=== PATIENT | female | born 1950 | race Caucasian/White ===

== ENCOUNTER 2023-06-18 14:19 | Outpatient (CLI) | payer MEDICARE, BC, SELFPAY ==
--- NOTE | 2023-06-18 14:30 | MR_ITS ---
[address] [address] Phone:?[phone] Fax:?[phone] Referring Physician Information: Viet Hurt M.D. [id number] [facility] [address] Phone:?[phone] Fax:?[phone] Patient:Melany Lombardo D.O.B:?1950 Sex:?Female Phone:?[phone] [facility] MRN:?[id number] Exam Date:?06/18/2023 EXAM: MRI of the LEFT SHOULDER WITHOUT CONTRAST CLINICAL HISTORY: Adhesive capsulitis of the left shoulder. Evaluate for rotator cuff tear. Personal history of melanoma. COMPARISONS: None available. TECHNICAL: MRI sequences of the left shoulder: Axials: PD, T2 Coronals: PD, STIR, T2 Sagittals: PD, T2 SEDATION: None CONTRAST: None FINDINGS: Bones: No fracture or suspicious bone marrow signal abnormality. Coracoacromial arch: Acromion: No os acromiale. Type I-II acromion. Acromiohumeral space: The bony distance is unremarkable. Acromioclavicular joint: No acute injury, arthropathy, or inferior hypertrophy. Coracoclavicular ligament: The coracoclavicular ligament is intact. Rotator cuff muscles/tendons: Supraspinatus: Mild tendinopathy. No muscular atrophy. Infraspinatus: The infraspinatus tendon and muscle are intact. Teres minor: The teres minor tendon and muscle are intact. Subscapularis: The subscapularis tendon and muscle are intact. Labrum and glenohumeral joint: No evidence of labral tear although evaluation is suboptimal because of nonarthrogram technique. Physiologic amount of joint fluid. Smooth chondral thinning over the humeral head is suspected although it must be noted that smooth chondral thinning is not well evaluated by MRI. No discrete chondral defect or subchondral cystic change/subchondral edema-like signal is seen. No convincing evidence of capsular edema or thickening although evaluation is suboptimal because of lack of joint distention. Proximal biceps tendon, long head and short heads: The long and short heads of the proximal biceps tendon are intact. Bursae: Subacromial/subdeltoid: No convincing subacromial bursal thickening/bursitis. Subcoracoid: No convincing subcoracoid bursal thickening/bursitis. IMPRESSION: 1. Mild supraspinatus tendinopathy. 2. Smooth chondral thinning over the humeral head is suspected although it must be noted that smooth chondral thinning is not well evaluated by MRI. No discrete chondral defect or subchondral cystic change/subchondral edema-like signal. 3. No MRI evidence of adhesive capsulitis although adhesive capsulitis is more of a clinical diagnosis; correlate with active and passive range of motion. 4. No discrete rotator cuff tendon tear, rotator cuff muscular atrophy, or biceps pathology of the left shoulder. RCB Electronically signed on 06/19/2023 8:37:00 AM by Raymundo Trevino M.D.
--- NOTE | 2023-06-18 15:30 | MR_ITS ---
[address] [address] Phone:?[phone] Fax:?[phone] Referring Physician Information: Viet Hurt M.D. [address] [facility] [address] Phone:?[phone] Fax:?[phone] Patient:Melany Lombardo D.O.B:?1950 Sex:?Female Phone:?[phone] [facility] MRN:?[id number] Exam Date:?06/18/2023 EXAM: MRI of the RIGHT SHOULDER WITHOUT CONTRAST CLINICAL HISTORY: Adhesive capsulitis of right shoulder. Evaluate for rotator cuff tear. Personal history of melanoma. COMPARISONS: None available. TECHNICAL: MRI sequences of the right shoulder: Axials: PD, T2 Coronals: PD, STIR, T2 Sagittals: PD, T2 SEDATION: None CONTRAST: None FINDINGS: Bones: No fracture or suspicious bone marrow signal abnormality. Coracoacromial arch: Acromion: No os acromiale. Type I-II acromion. Acromiohumeral space: The bony distance is unremarkable. Acromioclavicular joint: No acute injury, arthropathy, or inferior hypertrophy. Coracoclavicular ligament: The coracoclavicular ligament is intact. Rotator cuff muscles/tendons: Supraspinatus: The supraspinatus tendon and muscle are intact. Infraspinatus: The infraspinatus tendon and muscle are intact. Teres minor: The teres minor tendon and muscle are intact. Subscapularis: Mild tendinopathy. No muscular atrophy. Labrum and glenohumeral joint: No evidence of labral tear although evaluation is suboptimal because of nonarthrogram technique. Physiologic amount of joint fluid. Smooth chondral thinning over the humeral head is suspected although it must be noted that smooth chondral thinning is not well evaluated by MRI. No discrete chondral defect or subchondral cystic change/subchondral edema-like signal is seen. There is edema-like signal within and thickening of the inferior glenohumeral ligament/glenohumeral joint capsule. Proximal biceps tendon, long head and short heads: The long and short heads of the proximal biceps tendon are intact. Bursae: Subacromial/subdeltoid: No convincing subacromial bursal thickening/bursitis. Subcoracoid: No convincing subcoracoid bursal thickening/bursitis. IMPRESSION: 1. Findings highly associated with adhesive capsulitis. 2. Mild subscapularis tendinopathy. 3. Smooth chondral thinning over the humeral head is suspected although it must be noted that smooth chondral thinning is not well evaluated by MRI. No discrete chondral defect or subchondral cystic change/subchondral edema-like signal. 4. No rotator cuff tendon tear, rotator cuff muscular atrophy, biceps pathology of the right shoulder. RCB Electronically signed on 06/19/2023 8:37:00 AM by Raymundo Trevino M.D.
== END 2023-06-18 14:20 | disposition home or self-care (01) ==
LOC: MRI 14:20
PROVIDERS: PCP Family Medicine; Visit Provider Orthopaedic Surgery Sports Medicine
DX: M75.01 Adhesive capsulitis of right shoulder (principal); M75.101 Unspecified rotator cuff tear or rupture of right shoulder, not specified as traumatic; M75.02 Adhesive capsulitis of left shoulder; M75.102 Unspecified rotator cuff tear or rupture of left shoulder, not specified as traumatic
CPT/HCPCS: 73221

== ENCOUNTER 2024-03-06 11:32 | Emergency (ER) | payer MEDICARE, BC, SELFPAY ==
[2024-03-06 11:58] VITALS: BP 123/74; PULSE 78; RESP 18; TEMP 36.8; O2SAT 95
[2024-03-06 12:49] LABS: Strep A DNA Probe* NOT DETECTED (Not Detectd)
[2024-03-06 13:04] LABS: PCR FLU A Negative PCR FLU A (Negative); PCR FLU B Negative PCR FLU B (Negative); PCR RSV Negative PCR RSV (Negative); SARS PCR* POSITIVE SARS-CoV-2 (Negative)
--- NOTE | 2024-03-06 13:07 | ED_ITS ---
HPI - General Adult General Date Seen: 03/06/24 Chief complaint: Cough Stated complaint: sore throat,cough Time Seen by Provider: 03/06/24 12:22 Source: patient Mode of arrival: ambulatory Limitations: no limitations History of Present Illness HPI narrative: Patient is a 73-year-old female presenting to emergency department for sore throat. She states for the past 3 days she has been having nonproductive cough and sore throat. Denies chest pain, shortness of breath, dyspnea, fevers, chills, weakness, numbness, lightheadedness, dizziness. States the sore throat has been getting worse. Been taking Tylenol for pain without much improvement. Denies rhinorrhea. No other concerns noted. Denies any swelling noted underneath her tongue. Has had previous tonsillectomy Related Data Home Medications ?Medication ?Instructions ?Recorded ?Confirmed divalproex 250 mg tablet,extended 250 mg PO DAILY 06/25/22 06/23/23 release 24 hr divalproex 500 mg tablet,extended 500 mg PO QPM 06/25/22 06/23/23 release 24 hr gabapentin 300 mg capsule mg PO 06/25/22 06/23/23 minoxidil 2.5 mg tablet 2.5 mg PO DAILY 06/25/22 06/23/23 amantadine HCl 100 mg tablet 200 mg PO BID 05/22/23 06/23/23 atorvastatin 10 mg tablet 10 mg PO DAILY 05/22/23 06/23/23 levothyroxine 137 mcg tablet 137 mcg PO DAILY 05/22/23 06/23/23 quetiapine 100 mg tablet mg PO 05/22/23 05/22/23 valbenazine 80 mg capsule 80 mg PO DAILY 06/23/23 06/23/23 (Ingrezza) Allergies Allergy/AdvReac Type Severity Reaction Status Date / Time morphine Allergy Anaphylaxis Verified 06/23/23 13:57 Review of Systems Narrative: Pertinent systems reviewed and were negative unless stated in HPI PFSH PFS Medical History Melanoma (~2019) ?C43.9 - Malignant melanoma of skin, unspecified (ICD-10) Left lateral epicondylitis ?M77.12 - Lateral epicondylitis, left elbow (ICD-10) Tinnitus ?H93.19 - Tinnitus, unspecified ear (ICD-10) Non-cardiac chest pain ?R07.89 - Other chest pain (ICD-10) Gastroenteritis ?K52.9 - Noninfective gastroenteritis and colitis, unspecified (ICD-10) Dyskinesia of esophagus ?K22.4 - Dyskinesia of esophagus (ICD-10) Diarrhea ?R19.7 - Diarrhea, unspecified (ICD-10) Concussion ?S06.0XAA - Concussion with loss of consciousness status unknown, initial encounter (ICD-10) Chest pain ?R07.9 - Chest pain, unspecified (ICD-10) Acute bronchospasm ?J98.01 - Acute bronchospasm (ICD-10) Bipolar disorder ?F31.9 - Bipolar disorder, unspecified (ICD-10) GERD (gastroesophageal reflux disease) ?K21.9 - Gastro-esophageal reflux disease without esophagitis (ICD-10) Hypothyroid ?E03.9 - Hypothyroidism, unspecified (ICD-10) Surgical History Hx of LASIK ?Z98.890 - Other specified postprocedural states (ICD-10) H/O: hysterectomy ?Z90.710 - Acquired absence of both cervix and uterus (ICD-10) History of cholecystectomy ?Z90.49 - Acquired absence of other specified parts of digestive tract (ICD- 10) Family History Sister Breast cancer Diabetes Uterine cancer Mother Colon cancer Stroke Liver disease Father Stroke Social History Smoking Status: Never smoker Exam Narrative: Exam Narrative: Const: Well-nourished, Well-developed, in mild distress Eyes: PERRL, no conjunctival injection, and symmetrical lids HENT: Atraumatic external nose and ears. Moist mucous membranes. Uvula midline. Tonsils not visualized. No swelling noted underneath her tongue Neck: Symmetric, trachea midline, No thyromegaly. CVS: RRR, No murmurs or gallops. Peripheral pulses 2+ and equal in all extremities RESP: Unlabored respiratory effort. Clear to auscultation bilaterally. MSK:Extremities w/o deformity, Normal Active ROM Skin: Warm, Dry. No rashes or lesions. Neuro: Normal Muscle tone, No focal neurological deficits. Psych: Awake, Alert, & Oriented x3. Appropriate mood and affect. Const: Vital Signs, click to edit/add: Vital Signs - 24 hr 03/06/24 11:58 Temperature 98.2 F Pulse Rate [Pulse Oximeter] 78 Respiratory Rate 18 Blood Pressure [Ri ght Upper Arm] 123/74 Pulse Oximetry 95 Oxygen Delivery Me thod Room Air Course Vital Signs Vital signs: Initial Vital Signs Temperature 98.2 F 03/06/24 11:58 Temperature Source Temporal Artery Scan 03/06/24 11:58 Pulse Rate 78 03/06/24 11:58 Pulse Rhythm Regular 03/06/24 11:58 Respiratory Rate 18 03/06/24 11:58 Blood Pressure 123/74 03/06/24 11:58 Blood Pressure Mean 90 03/06/24 11:58 Blood Pressure Position Sitting 03/06/24 11:58 Pulse Oximetry 95 03/06/24 11:58 Oxygen Delivery Method Room Air 03/06/24 11:58 Vital Signs Temperature 98.2 F 03/06/24 11:58 Pulse Rate 78 03/06/24 11:58 Respiratory Rate 18 03/06/24 11:58 Blood Pressure 123/74 03/06/24 11:58 Pulse Oximetry 95 03/06/24 11:58 Oxygen Delivery Method Room Air 03/06/24 11:58 Temperature 98.2 F 03/06/24 11:58 Pulse Rate 78 03/06/24 11:58 Respiratory Rate 18 03/06/24 11:58 Blood Pressure 123/74 03/06/24 11:58 Pulse Oximetry 95 03/06/24 11:58 Oxygen Delivery Method Room Air 03/06/24 11:58 Medical Decision Making [facility] Narrative Medical decision making narrative: Patient is a 73-year-old female presenting for sore throat. Patient is not showing signs of peritonsillar abscess, Solomon angina, retropharyngeal abscess,Lemierre disease or any other concerning oral pharynx or deep neck space abscesses. Imaging is not necessary. Will do viral swabs and strep swab. Viral swab came back positive for COVID. This is likely the cause of all her symptoms. Will give her dexamethasone to help with her throat pain. Patient will be discharged. She is agreeable to this plan. Lab Data Labs: Lab Results 12/22/24 Range/Units 12:07 SARS-CoV-2 (PCR) POSITIVE SARS-CoV-2 A (Negative) Influenza Type A (PCR) Negative PCR FLU A (Negative) Influenza Type B (PCR) Negative PCR FLU B (Negative) RSV (PCR) Negative PCR RSV (Negative) Group A Strep DNA NOT DETECTED (Not Detectd) Discharge Plan Discharge Clinical Impression: COVID-19 Pharyngitis Qualifiers: Pharyngitis/tonsillitis etiology: unspecified etiology Qualified Code(s): J02.9 - Acute pharyngitis, unspecified Patient Disposition: Home, Self-Care Condition: Stable Instructions: COVID-19 (Coronavirus Disease 2019) (ED) Prescriptions: No Action divalproex 250 mg tablet extended release 24 hr 250 mg PO DAILY divalproex 500 mg tablet extended release 24 hr 500 mg PO QPM minoxidil 2.5 mg tablet 2.5 mg PO DAILY gabapentin 300 mg capsule PO amantadine HCl 100 mg tablet 200 mg PO BID levothyroxine 137 mcg tablet 137 mcg PO DAILY atorvastatin 10 mg tablet 10 mg PO DAILY quetiapine 100 mg tablet PO Ingrezza 80 mg capsule 80 mg PO DAILY Follow Up/Referrals: Lina Hawkins MD [Primary Care Provider] - Stand Alone Forms: [employer] Info Instructions
[2024-03-06 13:29] VITALS: PULSE 79; RESP 18; O2SAT 94
[2024-03-06] MEDS: dexAMETHasone 10 MG/ML inj PO (13:31)
== END 2024-03-06 13:35 | disposition home or self-care (01) ==
PROVIDERS: Emergency Provider Student in an Organized Health Care Education/Training Program; PCP Family Medicine
DX: U07.1 COVID-19 (principal); J02.9 Acute pharyngitis, unspecified
CPT/HCPCS: 87631; 87651; 99283; 99284; J1100

== ENCOUNTER 2024-05-27 12:33 | Emergency (ER) | payer MEDICARE, BC, SELFPAY ==
[2024-05-27] VITALS (8 sets, daily range): BP systolic 117–126; BP diastolic 54–62; PULSE 63–67; RESP 14; TEMP 36.6; O2SAT 90–93; BMI 34.3
--- OUTSIDE RECORDS SUMMARY | 2024-05-27 12:36 | XMS_ITS | Clinical Summary ---
Author Organization [facility] Address [address] [place] [address] Care Team Providers Care Piano Machine Operator Name Role Phone Real Otto Primary Care Provider Unavailab le Source Comments You are receiving this document as you are listed as the primary care provider,follow-up provider, or the patient has been referred to you for consultation.This is in compliance with the Medicare and[facility] EHR Incentive Program,which states Providers who transition their patient to another setting of careor provider of care or refers their patient to another provider of care shouldprovide summary care record for each transition of care or referral. [email or web address] Allergies Active Allergy Reactions Criticality Noted Date Comments Morphine 08/10/2002 Medications ALBUterol sulfate HFA 108 (90 Base) MCG/ACT inhaler Inhale 1-2 Puffs. 9 Active buPROPion (WELLBUTRIN XL) 300 MG 24 hour release tablet Take 300 mg by mouth. 0 Active buPROPion (WELLBUTRIN XL) 300 MG 24 hour release tablet TAKE 1 TABLET BY MOUTH EVERY DAY IN THE MORNING 0 Active fluocinonide (LIDEX) 0.05 % external solution PLEASE SEE ATTACHED FOR DETAILED DIRECTIONS 0 Active fluticasone-salm eterol (ADVAIR DISKUS) 250-50 MCG/DOSE diskus inhaler Inhale. 9 Active gabapentin (NEURONTIN) 300 MG capsule Take 1-2 caps by mouth at bedtime for hot flashes 9 Active gabapentin (NEURONTIN) 300 MG capsule TAKE 1 2 CAPSULES BY MOUTH AT BEDTIME FOR HOT FLASHES 0 Active FLUZONE HIGH-DOSE QUADRIVALENT 0.7 ML [facility] ADMINISTERED 0 Active levothyroxine (SYNTHROID) 150 MCG tablet Take 150 mcg by mouth. 9 Active lithium carbonate 150 MG capsule Take by mouth. 0 Active levothyroxine (SYNTHROID) 150 MCG tablet Take 150 mcg by mouth daily before breakfast. 0 Active lithium carbonate 150 MG capsule TAKE 1 CAPSULE BY MOUTH EVERYDAY AT BEDTIME 0 Active LORazepam (ATIVAN) 0.5 MG tablet 3 day supply while in [place] 0 Active LORazepam (ATIVAN) 0.5 MG tablet TAKE 1 TABLET BY MOUTH 2 TIMES DAILY IF NEEDED FOR ANXIETY OR SLEEP. 15 TABLETS TO LAST 30 DAYS 0 Active Multiple Vitamin (MULTI-VITAMIN) tablet Take 1 Tablet by mouth. 8 Active omeprazole (PRILOSEC) 20 MG capsule Take 20 mg by mouth. 0 Active omeprazole (PRILOSEC) 20 MG capsule 0 Active triamcinolone acetonide (KENALOG) 0.1 % ointment Apply twice per day as needed to itchy areas. Not for face or skin folds. 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 Melanoma in-situ, left anterior neck, s/p excision 01/18/2020. Melanoma in-situ, right anterior shoulder, s/p excision 01/16/2020 (Pathology showed progression to malignant melanoma). Personal history of malignant melanoma of skin 1 03/26/2019 Overview (04/23/2020): Malignant melanoma, right anterior shoulder, s/p excision 01/31/2020. Breslow depth: 0.6 mm Willian level: IV Social History Tobacco Use Types Packs/Day Years Used Date Smoking Tobacco: Never Assessed Comments Unknown Sex and Gender Information Value Date Recorded Sex Assigned at Female 02/01/2021 11:07 PM MEDICAL APPOINTMENT SCHEDULER Legal Sex Female 5:27 AM CDT Gender Identity Female 02/01/2021 11:07 PM MEDICAL APPOINTMENT SCHEDULER Sexual Orientation Straight 02/01/2021 11 :07 PM MEDICAL APPOINTMENT SCHEDULER Last Filed Vital Signs Vital Sign Reading Time Taken Comments Blood Pressure 133/52 01/18/2020 2:22 PM MEDICAL APPOINTMENT SCHEDULER Pulse 73 01/18/2020 2:22 PM MEDICAL APPOINTMENT SCHEDULER Temperature - - Respiratory Rate - - Oxygen Saturation - - Inhaled Oxygen Concentration - - Weight - - Height - - Body Mass Index - - Plan of Treatment Health Maintenance Due Date Last Done Comments Colon Cancer Screening Plan Due 1950 Hep C Screening (Preventive Services) 1950 Medicare Annual Wellness Visit 1950 Mammogram 1950 Dexa 2014 COVID-19 Vaccine ( season) 2023 12/15/2020, 05/29/2020, 05/08/2020 Influenza (#1) 2023 12/14/2020, 11/14, 12/14/2018, Additional history exists RSV (1 - 1-dose 75+ series) 2024 DTaP/Tdap/Td (3 - Tdap) 07/07/2028 07/08/19 19, 08/07/2006, 06/24/1995 Pneumococcal 50+ Yrs Completed 01/21/2018, 01/08/2016, 12/04/2010 Zoster/Shingles Completed 03/15/2019, 03/2018, 11/08/2018, Additional history exists HepA Aged Out No longer eligi ble based on patient's age to complete this topic HepB Aged Out No longer eligi ble based on patient's age to complete this topic Hib Aged Out No longer eligi ble based on patient's age to complete this topic IPV (Polio) Aged Out No longer eligi ble based on patient's age to complete this topic MCV4 Aged Out No longer eligi ble based on patient's age to complete this topic Meningococcal B Aged Out No longer el igible based on patient's age to complete this topic Insurance [facility] [place] [employer] MEDICARE MANAGED CARE [facility] Care Teams Piano Machine Operator Relationship Specialty Start Date End Date Real Otto PCP - General 06/14/10
--- OUTSIDE RECORDS SUMMARY | 2024-05-27 12:36 | XMS_ITS | Encounter Summary ---
Author Organization [facility] Address [address] [place] [id number] Care Team Providers Care Veneer Sample Maker Name Role Phone Unavailable Primary Care Provider Unavailabl e Reason for Visit * Appointment Request (Routine) - Closed Specialty Diagnoses / Procedures Referred By Contac t Referred To Contact Dermatology Diagnoses Alopecia Referral ID Status Reason Start Date Expiration Date Visits Re quested Visits Authorized [id number] Closed 01/18/2024 01/17/2025 1 1 Encounter Details Date Type Department Care Team (Late st Contact Info) Description 04/13/2024 4:40 PM HEAT TREATER HELPER Office Visit Department of Dermatology in [place], [place] [address] [place] [phone] Shannon Huston M.D. [address] [place] [phone] Alopecia Areata (Primary Dx); Melanoma Personal History; Sun Damaged Skin; Nevi Multiple; Keratosis Seborrheic; Keratosis Actinic Discharge Disposition: Home or Self Care Social History Tobacco Use Types Packs/Day Years Used Date Smoking Tobacco: Former Cigarettes 0 04/23/1968 - 1976 Smokeless Tobacco: Never Alcohol Use Standard Drinks/Week Comments Never 0 (1 standard drink = 0.6 oz pur e alcohol) [facility] Utilities Answer Date Recorded In the past 12 months has e electric, gas, oil, or water company threatened to shut off services in your home? No 04/12/2024 Humiliation, Afraid, Rape, and Kick questionnair e Answer Date Recorded Within the last year, have y ou been afraid of your partner or ex-partner? No 02/29/2020 Emotionally Abused Not on file 02/29/2020 Within the last year, have y ou been kicked, hit, slapped, or otherwise physically hurt by your partner or ex-partner? No 02/29/2020 Within the last year, have y ou been raped or forced to have any kind of sexual activity by your partner or ex-partner? No 02/29/2020 Social Connection and Isolat ion Panel [NHANES] Answer Date Recorded In a typical week, how many times do you talk on the phone with family, friends, or neighbors? More than three times a week 02/29/2020 How often do you get togethe r with friends or relatives? Once a week 02/29/2020 How often do you attend chur or rastafarian services? More than 4 times per year 02/29/2020 Do you belong to any clubs o r organizations such as yazdanism groups, unions, fraternal or athletic groups, or school groups? No 02/29/2020 How often do you attend meet ings of the clubs or organizations you belong to? Never 02/29/2020 Are you , , di vorced, , never , or living with a partner? 02/29/2020 AUDIT-C Answer Date Recorded Q1: How often do you have a drink containing alc ohol? Monthly or less 02/29/2020 Q2: How many drinks containi ng alcohol do you have on a typical day when you are drinking? 1 or 2 02/29/2020 Q3: How often do you have si x or more drinks on one occasion? Never 02/29/2020 Overall Financial Resource Strain (CARDIA) Answe r Date Recorded How hard is it for you to pa y for the very basics like food, housing, medical care, and heating? Not hard at all 02/29/2020 PHQ-2 Answer Date Recorded PHQ-2 Score 2 02/29/2020 [facility] Occupat ional [facility] - Occupational Stress Questionnaire Answer Date Recorded Do you feel stress - tense, restless, nervous, or anxious, or unable to sleep at night because your mind is troubled all the time - these days? To some extent 02/29/2020 Exercise Vital Sign Answer Date Recorde d On average, how many days pe r week do you engage in moderate to strenuous exercise (like a brisk walk)? 1 day 04/12/2024 On average, how many minutes do you engage in exercise at this level? 20 min 04/12/2024 Hunger Vital Sign Answer Date Recorded Within the past 12 months, y ou worried that your food would run out before you got the money to buy more. Never true 04/12/19 Within the past 12 months, t he food you bought just didn't last and you didn't have money to get more. Never true 04/12/2024 PRAPARE - Transportation Answer Date Re corded In the past 12 months, has l ack of transportation kept you from medical appointments or from getting medications? No 03/17 In the past 12 months, has l ack of transportation kept you from meetings, work, or from getting things needed for daily living? No 04/12/2024 Nutrition Answer Date Recorded On average, how many serving s of fruits and vegetables do you eat per day (serving size is equal to 1 cup or approximately the size of a tennis ball)? 0-2 04/12/2024 Dental Answer Date Recorded Dental: Regular Dentist Yes 04/12/19 Employment Answer Date Recorded Employment status Retired 04/12/2024 Housing Stability Answer Date Recorded What is your living situation today? I have a [facility] place to live 04/12/2024 Education Answer Date Recorded What is the highest level of school you have completed or the highest degree you have received? 12th grade 02/29/2020 Comments Unknown Sex and Gender Information Value Date Recorded Sex Assigned at Female 07/18/2021 9:38 PM CDT Legal Sex Female 6:04 AM HEAT TREATER HELPER Gender Identity Female 03/30/2020 10:36 PM HEAT TREATER HELPER Sexual Orientation Not on file documented as of this encounter Progress Notes * Shannon Huston M.D. - 04/13/2024 4:40 PM CST SUBJECTIVE CHIEF COMPLAINT Personal history of melanoma in situ, follow-up Alopecia areata HISTORY OF THE PRESENT ILLNESS Felisa Lombardo is a pleasant 73 y.o. female who follows up for a history of lentigo maligna (MMIS) of the neck, and right mid upper chest status post excision outside facility in December of 2019and lentigo maligna of the right calf status post excision in January of 2020 at our [facility]. 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 No new patches, no shedding. She isvery happy with minoxidil ROS: The patient denies unintentional weight loss, night sweats, headache, vision change, shortnessof breath, cough, abdominal pain, blood in stool, or lumps in the neck/under arms/groin. There are no other skin concerns today. OBJECTIVE PHYSICAL EXAM General: Awake, alert, in no acute distress, and with appropriate affect. Skin: Scars of melanoma surgery were observed without any evidence of pigmentation, irregularity ornodularity/ulceration. Multiple hyperpigmented macules and papules scattered over the trunk and extremities many of which were examined under dermoscopy with reassuring patterns. On the nasal bridge there is a 3-4 mm rough scaly pink papule No patches of alopecia identified on examination of the scalp Examination of the lymph node is negative for evidence of cervical, supraclavicular, axillary or inguinal lymphadenopathy ASSESSMENT / PLAN #1 Personal history of three lentigo maligna of the chest neck and calf status post excision in December and January 2020 No evidence of recurrence on examination today. Recommend dermatology exam yearly #2 Alopecia areata, resolved. Wonderful response with near 100% hair regrowth. Will continue with oral minoxidil #3 Multiple benign-appearing nevi The ABCDE criteria for melanoma was reviewed with the patient. None of the patient's nevi reach theclinical threshold for biopsy. I recommend continued sun protection, self-skin examinations, and observation. Should any of the patient's nevi change in size, color, texture, or shape or develop symptoms such as itching or bleeding, I recommend an immediate return visit for reassessment. #4 Seborrheic keratosis The benign nature of the skin lesion(s) was discussed with the patient. No treatment is required. Irecommend continued observation. Should symptoms or changes develop related to this condition, I would recommend a return visit for reassessment. #5 Actinic keratosis x 1 CONSENT Discussed the risks, benefits, alternatives, and the necessity of other members of the healthcare team participating in the procedure. All questions answered and consent given. PROCEDURE INFORMATION Given the precancerous nature of this lesion(s), treatment is medically indicated. After discussionof the risks, benefits and alternatives to treatment with cryotherapy, informed consent was obtained. We treated a total of one lesion(s) with two 20-second freeze-thaw cycles of liquid nitrogen cryotherapy. The patient tolerated the procedure well. Aftercare instructions were provided in written and verbal form to the patient. Should any of these lesions recur, the patient should return for biopsy or further evaluation. TREATER HELPER documented in this encounter Plan of Treatment Not on file documented as of this encounter Visit Diagnoses Diagnosis Alopecia Areata- Primary Melanoma Personal History Sun Damaged Skin Nevi Multiple Keratosis Seborrheic Keratosis Actinic documented in this encounter Additional Health Concerns Assessment Noted Time PHQ-9 Depression Total Score: 14 016 10:58 AM CDT documented as of this encounter
--- OUTSIDE RECORDS SUMMARY | 2024-05-27 12:36 | XMS_ITS | Clinical Summary ---
Author Organization [facility] Address [address] [place] [address] Care Team Providers Care Therapist Physical Name Role Phone Lane Cid PsyD, LP Unavailable Naomi Bergman MD Unavailable Lina Hawkins MD Primary Care Provider Allergies Active Allergy Reactions Criticality Noted Date Comments Codeine Syncope High 07/30/2006 Iodinated Contrast Media Hives Medium 05/12/2017 Propoxyphene-Acetaminophe n Nausea Only Medium 07/30/2006 Morphine Anaphylaxis High 08/10/2002 Topiramate GI Upset Medium 07/30/2006 Tramadol Tinnitus 09/03/2017 crickets chirping in ears - attributes to tramadol Medications nitroglycerin (NITROSTAT) 0.4 mg sublingual tablet 021 Active cholecalciferol, Vitamin D3, 5,000 unit tab tablet Take 5,000 units by mouth once daily. D3 5,000 + K metagenics brand Active multivitamins-min erals-lutein (Multivitamin 50 Plus) tab tablet Take 1 Tablet by mouth once daily. Active acetaminophen (TYLENOL EXTRA STRGTH) 500 mg tablet Take 1,000 mg by mouth every 6 hours if needed. BID as needed for shoulder pain. Max acetaminophen dose: 4000mg in 24 hrs. Active ibuprofen (ADVIL; MOTRIN) 200 mg tablet Take 400 mg by mouth 4 times daily if needed. as needed for shoulder pain Active levothyroxine (SYNTHROID) 137 mcg tabletIndications :Acquired hypothyroidism Take 1 Tablet (137 mcg) by mouth before breakfast. 100 Tablet 3 024 Active minoxidiL (LONITEN) 2.5 mg tab Take 2.5 mg by mouth once daily. 024 Active gabapentin (NEURONTIN) 300 mg capsuleIndication s:Hot flashes Take 1 Capsule (300 mg) by mouth at bedtime. 90 Capsule 1 024 Active divalproex (DEPAKOTE ER) 500 mg Extended-Release tabletIndications :Bipolar depression (HC) Take 1 Tablet (500 mg) by mouth at bedtime. 90 Tablet 1 024 Active atorvastatin (LIPITOR) 10 mg tabletIndications :Mixed hyperlipidemia TAKE 1 TABLET BY MOUTH EVERYDAY AT BEDTIME 90 Tablet 1 024 Active lithium carbonate (LITHOBID) 300 mg Controlled-Releas e tabletIndications :Bipolar depression (HC) Take 2 Tablets (600 mg) by mouth at bedtime. 60 Tablet 5 024 Active valbenazine (INGREZZA) 80 mg capsuleIndication s:Tardive dyskinesia Take 1 Capsule (80 mg) by mouth once daily. 30 Capsule 5 05/20/19 25 10:07 AM LAND LAW EXAMINER 025 Active oxybutynin XL (DITROPAN XL) 10 mg CR tabletIndications :Urinary frequency Take 1 Tablet (10 mg) by mouth once daily. 100 Tablet 3 025 Active traZODone (DESYREL) 50 mg tabletIndications :Psychophysiologi shana insomnia Take 0.5-4 Tablets (25-200 mg) by mouth at bedtime if needed for Sleep. 60 Tablet 2 025 Active LORazepam 1 mg tabletIndications :Anxiety Take 1 tablet nightly at bedtime for insomnia and another 1 mg daily as needed for anxiety or tardive dyskinesia 60 Tablet 2 025 Active amantadine HCL (SYMMETREL) 100 mg capsuleIndication s:Tardive dyskinesia Take 1 Capsule (100 mg) by mouth once daily for 1 day, THEN 1 Capsule (100 mg) two times daily for 1 day, THEN 1 Capsule (100 mg) three times daily for 1 day, THEN 2 Capsules (200 mg) two times daily. 120 Capsule 2 025 2024 Active buPROPion (WELLBUTRIN XL) 150 mg Extended-Release tabletIndications :Hot flashes TAKE 1 TABLET (150 MG) BY MOUTH ONCE DAILY IN THE MORNING. 90 Tablet 1 025 Active buPROPion (Wellbutrin XL) 150 mg Extended-Release tabletIndications :Hot flashes Take 1 Tablet (150 mg) by mouth once daily in the morning. 90 Tablet 1 024 2024 Discontinued naltrexone (REVIA) 50 mg tabletIndications :Obesity, unspecified classification, unspecified obesity type, unspecified whether serious comorbidity present Take 1 Tablet (50 mg) by mouth once daily. 90 Tablet 1 024 2024 Discontinued(* Med complete/Regim en complete/Level of care change) oxybutynin XL (DITROPAN XL) 5 mg CR tabletIndications :Urinary frequency TAKE 1 TABLET BY MOUTH EVERY DAY 100 Tablet 3 024 2024 Discontinued(* Medication adjustment) LORazepam 1 mg tabletIndications :Anxiety TAKE 1-2 TABLETS (1-2 MG) BY MOUTH AT BEDTIME. 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 Melanoma 03/28/2022 Migraine syndrome 03/20/2022 Controlled substance agreement signed 07/10/2021 Overview (08/04/2022): Signed 08/04/2022 Naomi Bergman MD/ [facility] Melanoma in situ of neck 04/25/2020 Alopecia areata 04/25/2020 Bulbar polio 08/27/2018 Overview (08/27/2018): Age 1 s/p right knee manipulation 09/03/17 05/24/2018 Skin cancer 10/02/2017 Overview (03/08/2018): Right Upper Back, nBCC, ED&C treated 11/26/17 Cherie Duffy PA-C Arthrofibrosis of knee joint, right 08/28/2017 s/p right total knee arthroplasty 05/12/172017 Anxiety 09/30/2016 Chronic pain 09/18/2016 Tardive dyskinesia 04/28/2016 Gastroesophageal reflux disease with esophagitis 03/19/2016 Overview (03/19/2016): EGD 03/2016 reflux, try omeprazole Insomnia 11/22/2015 Primary osteoarthritis of right knee 06/20/2015 Overview (06/20/2015): Steroid injection 05/2015, Dr. Caraballo Screen for colon cancer 07/08/2012 Overview (07/08/2012): Colonoscopy 06/2012 normal repeat in 10 years ASTHMA, mild intermittent 07/30/2006 OBESITY, stage I 07/30/2006 HYPOTHYROIDISM ACQUIRED UNSPEC 06/19/2006 Overview (11/28/2014): Diagnosed at age 32. Not sleeping, hot, sweaty, irritable,edgy, stressed. TSH normal to low to high frequently with various dosages Has missed taking levothyroxine off and on in past. Resolved Problems Problem Noted Date Diagnosed Date Resolved Date Controlled substance agreement signed 07/10/2021 07/10/2021 Routine adult health maintenance 08/05/2018 01/27/2019 Overview (08/05/2018): Colonoscopy 07/2018 normal, repeat in 10 years Controlled substance agreement signed 08/20/2016 07/10/2021 Overview (08/20/2016): Signed: 11/22/15 Dr. Naomi Bergman /psychiatry Encounters Date Type Department Care Team Description 05/27/2024 Nurse Triage [facility] [address] [place] [address] Naomi Bergman MD Weak 05/24/2024 Refill [facility] [address] [place] [address] Naomi Bergman MD Refill Request (Bupropion) 05/23/2024 1:15 PM CDT Office Visit [address] [address] Naomi Bergman MD Medication Management (Things are okay//Due for: Discus Exam/ ) 05/23/2024 Travel 05/16/2024 1:05 PM LAND LAW EXAMINER Office Visit [address] [address] Lina Hawkins MD Thyroid Problem (Feels Tired all day ) 05/16/2024 Travel 03/23/2024 Telephone [facility] [address] [place] [address] Naomi Bergman MD Medication Management 03/06/2024 Nurse Triage [facility] [address] [place] [address] Lina Hawkins MD Cough 03/03/[address] [address] Naomi Bergman MD Refill Request (Lorazepam) 02/27/[address] [address] Naomi Bergman MD Refill Request (Topstone Carbonate) from Last 3 Months Immunizations Immunization Administration Dates Next Due AMB Influenza, IIV3 (Age >=3 years) Preserve Free (Flu Clinic Only) 01/10/2013 AMB Influenza, IIV4 PF (=>6 mos Flulaval,Fluzone Fluarix)(Flu Clinic Only) 12/08/2013 Amb Influenza, Inact (High-d ose) (Flu Clinic Only) 12/18/2015 COVID-19 VACCINE SPIKEVAX (M ODERNA 50MCG/0.5ML) 12YO+ PFS 07/01/2023 COVID-19 vaccine (Augmenix-Bio NTech 30mcg/0.3mL) 12YO+ BIVALENT PF, MDV 04/03/2022 COVID-19 vaccine (Pfizer-Bio NTech 30mcg/0.3mL) 12YO+ HEENA-SUCROSE PF, MDV 08/08/2021 COVID-19 vaccine (Pfizer-Bio NTech 30mcg/0.3mL) PF, MDV 12/15/2020,05/29/2020,05/08/2020 Influenza Virus, Unspecified 12/18/2011, 12/04/2010,12/03/2009,2003 Influenza, High-dose Inactivated 12/18/2015,12/15,01/08/2015 Influenza, High-dose Quadriv alent Inactivated 10/29/2022,01/27/2022,01/26/2022,2020 Influenza, IIV3 (Age 6-35 mos) 01/10/2013,2010,12/03/2009 Influenza, IIV3 (Age >=3 years) 12/18/19 12,12/04/2010,12/03/2009,2003 Influenza, IIV4 12/14/2018,12/08/2013 Influenza, Inactivated AIIV4 (Age 65+ Years) Preserv Free 12/02/2019 Influenza, Inactivated IIV3 (Age 65+ Years) Preserv Free 11/08/2018,01/21/2018,12/02/2016 Pneumococcal Poly,23-Valent (Pneumovax) 01/21/2018,12/04/2010 Pneumococcal conj 13-Valent (Prevnar 13) 01/08/2016 TD, UNSPECIFIED 06/24/1995 Td (Age >=7 Years) 06/24/1995 Tdap 07/07/2018,08/07/2006 Zoster (Shingrix-RZV, recombinant) 03/15/2019,,11/08/2018 Zoster (Zostavax-ZVL, live) 12/04/2010 Family History Medical History Relation Name Comments Pancreatitis Brother 3 55 yr Pulmonary fibrosis Father Stroke Father and NPH Good Health Maternal Grandfather Asthma Maternal Grandmother Diabetes Maternal Grandmother Heart Disease Maternal Grandmother Hyperlipidemia Maternal Grandmother Hypertension Maternal Grandmother Cancer Mother liver cancer Cancer-colon Mother stage 4 Hyperlipidemia Mother Hypertension Mother Osteoporosis Mother Cancer Sister 1 sweat gland in the left breast Cancer-breast Sister 1 Cancer-ovarian No Family History Relation Name Status Comments Brother 1 Alive Brother 2 Alive Brother 3 Father Maternal Grandfather Maternal Grandmother Mother 05/2014 Paternal Aunt 1 Alive Paternal Aunt 2 Alive Paternal Grandfather Paternal Grandmother Paternal Uncle Sister 1 Alive Sister 2 Alive Sister 3 Alive Son 1 Alive Son 2 Alive Social History Tobacco Use Types Packs/Day Years Used Date Smoking Tobacco: Former Cigarettes 0.1 8 0 03/16/1969 - 03/16/1977 Smokeless Tobacco: Never Tobacco Cessation:Counseling Given: No Comments:quit 43 years ago. Alcohol Use Standard Drinks/Week Comments Not Currently 0 (1 standard drink = 0.6 oz pur e alcohol) maybe once a month PHQ-2 Answer Date Recorded PHQ-2 TOTAL SCORE 2 05/23/2024 Social Connections Answer Date Recorded Do you often feel lonely or isolated from those around you? 0 12/24/2023 Alcohol Use Answer Date Recorded How often do you have a drink containing alcohol ? 1 08/04/2022 Average Number of Drinks Not on file 023 Frequency of Binge Drinking Not on file 07/15 Financial Resource Strain Answer Date R ecorded Difficulty of Paying Living Expenses 3 12/24/2023 Difficulty of Paying Living Expenses Not on file 12/24/2023 Food Insecurity Answer Date Recorded Do you worry your food will run out before you are able to buy more? 1 12/24/2023 Transportation Needs Answer Date Record ed Does lack of transportation keep you from medica l appointments? 1 12/24/2023 Does lack of transportation keep you from work, meetings or getting things that you need? 1 12/24/2023 Housing Stability Answer Date Recorded What is your housing situation today? 1 12/24/2023 Utilities Answer Date Recorded Do you have trouble paying f or utilities (for example, heat, electricity, water, phone)? 1 12/24/2023 Comments No Sex and Gender Information Value Date Recorded Sex Assigned at Female 06/08/2020 12:34 AM CDT Legal Sex Female 5:24 AM LAND LAW EXAMINER Gender Identity Female 06/08/2020 12:32 AM CDT Sexual Orientation Straight 06/08/2020 12 :32 AM CDT Occupation Industry Job Start Date Job End Date Not on file Not on file Not on file Not on file Obstetrics History Para Term AB IAB SAB Ectopic Multiple Livin g Live Births 2 2 Date Outcome GA Total Labor Labor/2nd/3rd Weight Sex Type Anes PTL Jenni A1 A5 Name Clin Last Filed Vital Signs Vital Sign Reading Time Taken Comments Blood Pressure 145/78 05/23/2024 1:12 PM CDT Pulse 80 05/23/2024 1:12 PM CDT Temperature 37 C (98.6 F) 05/16/2024 1:02 PM LAND LAW EXAMINER Respiratory Rate 16 01/23/2023 1:35 PM LAND LAW EXAMINER Oxygen Saturation 96% 05/16/2024 1:0 2 PM LAND LAW EXAMINER Inhaled Oxygen Concentration - - Weight 90.7 kg (200 lb) 05/23/2024 1:12 PM CDT [facility], [place] weight Height 162.6 cm (5' 4) 08/24/2023 3:39 PM CDT Body Mass Index 34.33 08/24/2023 3:39 PM CDT Plan of Treatment Upcoming Encounters Date Type Department Care Team (Late st Contact Info) Description 06/09/2024 2:00 PM CDT Office Visit [facility] [address] [place] [address] Bronson Fermin, [employer]NT [employer]ONEL [address] [place] [address] 06/29/2024 11:45 AM CDT Office Visit [facility] [address] [place] [address] Naomi Bergman MD [address] [place] [address] Health Maintenance Due Date Last Done Comments COVID-19 vaccine series ( season) 2023 07/01/2023, 04/03/2022, 08/08/2021, Additional history exists Influenza Vaccine (#1) 2023 , 12/14/2018, 11/08/2018, Additional history exists RSV vaccine for adults or (1 - 1-dose 75+ series) 2024 Medicare Wellness for age 65+ 07/01/2024, 08/08/2021, 04/06/2020 (Completed outside of [facility]), Additional history exists BMI (ht and wt on same day) for age 18+ 08/23/2024 08/24/2023, 07/01/2023, 01/23/2023, Additional history exists Depression screening for age 12+ 05/27/2025 05/27/2024, 05/24/2024, 05/23/2024, Additional history exists Lipids for age 45-75 06/30/2028 07/01/2023, 03/18/2023, 09/18/2022, Additional history exists Tetanus booster 07/07/2028 07/07/2018, 07/15, 06/24/1995, Additional history exists Colonoscopy through age 75 08/05/202808/05, 08/05/2018, 08/05/2018, Additional history exists Hepatitis C screening for ag e 18-79 Completed 07/15/2013 Pneumococcal series for age 50+ Completed 01/21/2018, 01/08/2016, 12/04/2010 Tdap Completed 07/07/2018, 08/07/2006 Zoster (shingles) series for age 50+ Completed 03/15/2019, 12/14/2018, 11/08/2018, Additional history exists DEXA/DXA scan for age 65+ Completed 09/28/2023, Medical Devices Implanted Type Area Signal Circuit Designer Device Identifier Shelf Expiration Date Model / Serial / Lot Patella Sz32 Christina Ii Rnd [facility] - [id number] Implanted:Qty: 1 on 05/12/2017 by Zach King MD at [facility] Total Joint Right: Knee [employer] 02/07/2027 [id number] / / [id number] Baseplate Tib Rt Sz4 Christina Ii Titnm Non Pors - [id number] Implanted:Qty: 1 on 05/12/2017 by Zach King MD at [facility] Total Joint Right: Knee [employer] 02/04/2027 [id number] / / [id number] Log [id number] - [id number] Lens Iol - 1 - Lens Iol 21.5 Tecnis Implanted:Qty: 1 on 12/24/2011 by Srikanth Zapata MD at [facility] Left: Eye [employer] 08/23/2016 [id number] / [id number] / 40 G Rally Hv Bone Cement Implanted:Qty: 2 on 05/12/2017 by Zach King MD at [facility] Right: Knee [employer] 02/12/2022 [id number] / / [id number] Fem Rt Sz5 [employer] Ret Oxin - [id number] Implanted:Qty: 1 on 05/12/2017 by Zach King MD at [facility] Right: Knee [employer] 12/06/2026 [id number] / / [id number] Insert Knee Sz3-4 11mm [employer] Ret High Flex Xlpe - [id number] Implanted:Qty: 1 on 05/12/2017 by Zach King MD at [facility] Right: Knee [employer] 01/19/2027 [id number] / / [id number] Procedures Procedure Name Priority Date/Time Associated Diagnosis Comments URINALYSIS MACROSCOPIC - [facility] ONLY POC DIP ([facility]) Routine 05/16/2024 2:44 PM LAND LAW EXAMINER Urinary frequency URINALYSIS MICROSCOPIC Routine 05/16/2024 2:41 PM LAND LAW EXAMINER Urinary frequency URINE CULTURE Routine 05/16/2024 2:41 PM LAND LAW EXAMINER Urinary frequency COMP METABOLIC PANEL Routine 05/16/2024 2:00 PM LAND LAW EXAMINER Fatigue, unspecified type CBC WITH AUTO DIFFERENTIAL Routine 05/16/2024 2:00 PM LAND LAW EXAMINER Fatigue, unspecified type TSH WITH REFLEX Routine 05/16/2024 2:00 PM LAND LAW EXAMINER Fatigue, unspecified type XR DXA BONE DENSITY 2 SITES AXIAL Routine 09/28/2023 1:13 PM CDT Menopause LIPID PANEL W REFLEX MEASURED LDL Routine 07/01/2023 2:36 PM CDT Mixed hyperlipidemia COLONOSCOPY SCREENING Routine 08/05/2018 9:50 AM CDT Screen for colon cancer ANTI HCV Routine 07/15/2013 3:55 PM CDT Need for hepatitis C screening test from Last 3 Months or Most Recently Relevant to Health Maintenance Results * (ABNORMAL) POCT Urinalysis Dipstick Only (05/16/2024 2:44 PM LAND LAW EXAMINER) PH 5.5 5.0 - 8.0 [facility] SPECIFIC GRAVITY > OR = 1.030 1.001 - 1.035 [facility] Comment: Specific [place] values resulted are outside the analytical measurement range of this device. Recommend repeat/additional testing as clinically indicated. GLUCOSE NEGATIVE NEGATIVE [facility] BILIRUBIN NEGATIVE NEGATIVE [facility] KETONES NEGATIVE NEGATIVE [facility] OCCULT BLOOD NEGATIVE NEGATIVE [facility] PROTEIN NEGATIVE NEGATIVE [facility] NITRITE NEGATIVE NEGATIVE [facility] LEUKOCYTE ESTERASE TRACE(A) NEGATIVE [facility] Urine URINE SPECIMEN / Unknown 05/16/2024 2:44 PM LAND LAW EXAMINER 05/16/2024 2:44 PM LAND LAW EXAMINER us Lina Hawkins MD URINE Final Resul t [facility] [address] [place] [address], [place] [phone] [facility] [address] [place] [address] * URINALYSIS MICROSCOPIC (05/16/2024 2:41 PM LAND LAW EXAMINER) RBC 0-2 0-2, None Seen /HPF 05/16/2024 11:35 PM LAND LAW EXAMINER [facility] WBC 3-5 0-2, 3-5, None Seen /HPF 05/16/2024 11:35 PM LAND LAW EXAMINER [facility] BACTERIA Few None Seen, Rare, Few Bacteria/H PF 05/16/2024 11:35 PM LAND LAW EXAMINER [facility] EPITHELIAL CELLS Few None Seen, Few Epi/HPF 05/16/2024 11:35 PM LAND LAW EXAMINER [facility] Mucus Present 05/16/2024 11:35 PM LAND LAW EXAMINER [facility] HYALINE CASTS 0-2 0-2, 3-5 /LPF 05/16/2024 11:35 PM LAND LAW EXAMINER [facility] Urine URINE SPECIMEN / Unknown Non-Blood / Unknown 05/16/2024 2:41 PM LAND LAW EXAMINER 05/16/2024 2:49 PM LAND LAW EXAMINER us Lina Hawkins MD URINE Final Resul t Performing Organization Address City/[facility]/ZIP Co de Phone Number [facility] [address] [place] [address], [place] * URINE CULTURE (05/16/2024 2:41 PM LAND LAW EXAMINER) CULTURE <10,000 CFU/mL multiple organisms 05/18/2024 10:24 AM LAND LAW EXAMINER [facility] Urine URINE SPECIMEN / Unknown Non-Blood / Unknown 05/16/2024 2:41 PM LAND LAW EXAMINER 05/16/2024 2:49 PM LAND LAW EXAMINER us Lina Hawkins MD MICROBIOLOGY Final Resul t Performing Organization Address City/[facility]/ZIP Co de Phone Number [facility] [address] [place] [id number], [place] * TSH WITH REFLEX (05/16/2024 2:00 PM LAND LAW EXAMINER) Pathologist [facility] TSH W/REFLEX TO FT4 1.41 0.40 - 4.50 mIU/L [facility] Blood BLOOD SPECIMEN / Unknown 05/16/2024 2:00 PM LAND LAW EXAMINER 05/16/2024 2:01 PM LAND LAW EXAMINER Narrative [facility] - 05/17/2024 6:17 AM LAND LAW EXAMINER FASTING:NO FASTING: NO us Lina Hawkins MD CHEMISTRY Final Resul t [facility] [address] [place] [address], [facility] [address] [place] [address] * (ABNORMAL) CBC AND DIFFERENTIAL (05/16/2024 2:00 PM LAND LAW EXAMINER) Pathologist [facility] WHITE BLOOD CELL COUNT 11.4(H) 3.8 - 10.8 Thousand/u L [facility] RED BLOOD CELL COUNT 4.71 3.80 - 5.10 Million/uL [facility] HEMOGLOBIN 15.4 11.7 - 15.5 g/dL [facility] HEMATOCRIT 45.2(H) 35.0 - 45.0 % [facility] MCV 96.0 80.0 - 100.0 fL [facility] MCH 32.7 27.0 - 33.0 pg [facility] MCHC 34.1 32.0 - 36.0 g/dL [facility] Comment: For adults, a slight decrease in the calculated MCHC value (in the range of 30 to 32 g/dL) is most likely not clinically significant; however, it should be interpreted with caution in correlation with other red cell parameters and the patient's clinical condition. RDW 11.9 11.0 - 15.0 % [facility] PLATELET COUNT 254 140 - 400 Thousand/u L [facility] MPV 11.0 7.5 - 12.5 fL [facility] ABSOLUTE NEUTROPHILS 8,801(H) 1,500 - 7,800 cells/uL [facility] ABSOLUTE LYMPHOCYTES 1,459 850 - 3,900 cells/uL [facility] ABSOLUTE MONOCYTES 992(H) 200 - 950 cells/uL [facility] ABSOLUTE EOSINOPHILS 91 15 - 500 cells/uL [facility] ABSOLUTE BASOPHILS 57 0 - 200 cells/uL [facility] NEUTROPHILS 77.2 % [facility] LYMPHOCYTES 12.8 % [facility] MONOCYTES 8.7 % [facility] EOSINOPHILS 0.8 % [facility] BASOPHILS 0.5 % [facility] Blood BLOOD SPECIMEN / Unknown 05/16/2024 2:00 PM LAND LAW EXAMINER 05/16/2024 2:01 PM LAND LAW EXAMINER Narrative [facility] - 05/17/2024 3:03 AM LAND LAW EXAMINER FASTING:NO FASTING: NO us Lina Hawkins MD HEMATOLOGY Final Resul t [address] [facility] [address] [place] [address], [employer] [address] [address] * COMP METABOLIC PANEL (05/16/2024 2:00 PM LAND LAW EXAMINER) [facility] GLUCOSE 93 65 - 139 mg/dL [facility] Comment: Non-fasting reference interval UREA NITROGEN (BUN) 15 7 - 25 mg/dL [facility] CREATININE 0.94 0.60 - 1.00 mg/dL [facility] EGFR 63 > OR = 60 mL/min/1. 73m2 [facility] BUN/CREATININE RATIO SEE NOTE: 6 - 22 (calc) [facility] Comment: Not Reported: BUN and Creatinine are within reference range. SODIUM 139 135 - 146 mmol/L [facility] POTASSIUM 4.4 3.5 - 5.3 mmol/L [facility] CHLORIDE 106 98 - 110 mmol/L [facility] CARBON DIOXIDE 24 20 - 32 mmol/L [facility] CALCIUM 9.8 8.6 - 10.4 mg/dL [facility] PROTEIN, TOTAL 6.8 6.1 - 8.1 g/dL [facility] ALBUMIN 4.3 3.6 - 5.1 g/dL [facility] GLOBULIN 2.5 1.9 - 3.7 g/dL (calc) [facility] ALBUMIN/GLOBULIN RATIO 1.7 1.0 - 2.5 (calc) [facility] BILIRUBIN, TOTAL 0.6 0.2 - 1.2 mg/dL [facility] ALKALINE PHOSPHATASE 92 37 - 153 U/L [facility] AST 15 10 - 35 U/L [facility] ALT 15 6 - 29 U/L [facility] Blood BLOOD SPECIMEN / Unknown 05/16/2024 2:00 PM LAND LAW EXAMINER 05/16/2024 2:01 PM LAND LAW EXAMINER Narrative [facility] - 05/17/2024 5:14 AM LAND LAW EXAMINER FASTING:NO FASTING: NO us Lina Hawkins MD CHEMISTRY Final Resul t [facility] [address] [place] [address], [facility] [address] [place] [address] * (ABNORMAL) XR DXA BONE DENSITY 2 SITES AXIAL [85470.1] (09/28/2023 1:13 PM CDT) Anatomical Region Laterality Modality Spine, HIPS, HIPL, HIPR Other Impressions 09/29/2023 2:10 PM CDT Osteopenia. RECOMMENDATIONS: The National Osteoporosis Foundation recommends pharmacologic treatment for patients with T-scores of -2.5 or less, patients with prior history of fragility fractures, or patients with 10-year probability of greater than 3% at hips or greater than 20% of suffering major osteoporotic fractures. Recommend continued optimization of calcium and vitamin D intake through dietary means and/or supplementation and regular exercise. Repeat scan recommended in 3-5 years. Aleena Bloom PA-C [facility] 09/29/2023 Narrative 09/29/2023 2:10 PM CDT For Patients: Results are automatically released to your [facility] ([employer]) account once available, in compliance with federal regulations. This means that you may see your results before your provider has had a chance to review them. Please allow 2-3 business days for your provider to comment on the results. XR DXA Bone Mineral Density (BMD) EXAM LOCATION: [address] [address] PATIENT NAME: Felisa Lombardo DATE OF : 1950 EXAM DATE: 09/28/2023 REQUESTING PROVIDER: Lina Hawkins MD GENDER AT : female HEIGHT: 5' 4 (08/24/2023) WEIGHT: 188 lb 11.2 oz (08/24/2023) MENOPAUSAL STATUS: Postmenopausal RACE/ETHNICITY: White RISK FACTORS: Family History of Osteoporosis, Smoking (prior), and White Race CURRENT MEDICATION FOR BONE LOSS: NONE INDICATION: Menopause COMPARISON DATE(S): 2012 DXA scans are compared to prior studies for a patient only when the two (or more) studies were performed on the same scanner. It is not possible to compare data generated on one scanner to data from another because there are not standards in DXA equipment. This applies even if the two scanners are made by the same tents assembler. PROCEDURE: Dual-energy x-ray absorptiometry performed with routine technique. Reporting is completed in the form of a T-score. The T-score represents the standard deviation from peak bone mass based on young healthy adult. A Z-score is used for diagnosis in premenopausal women, and for men under the age of 50. FINDINGS: RESULT LUMBAR SPINE L1 - L4 BMD: 1.175 g/cm2 T-Score: - 0.2 Z-Score: + 0.9 Change from prior in 2013: Decrease 4.9%. RESULTS FEMUR Left femoral neck BMD: 0.876 g/cm2 T-Score: - 1.2 Z-Score: + 0.3 Change from prior in 2013: Decrease 12.1%. Right femoral neck BMD: 0.856 g/cm2 T-Score: - 1.3 Z-Score: + 0.1 Change from prior in 2013: Decrease 12.7%. Left hip BMD: 0.939 g/cm2 T-Score: - 0.5 Z-Score: + 0.7 Change from prior in 2013: Decrease 11.7%. Right hip BMD: 0.888 g/cm2 T-Score: - 0.9 Z-Score: + 0.3 Change from prior in 2013: Decrease 12.0%. WHO criteria: Normal: T-score at or above -1 SD Osteopenia: T-score between -1.1 and -2.4 SD Osteoporosis: T-score at or below -2.5 SD FRAX RISK CALCULATION (USED FOR OSTEOPENIA ONLY): 10-year probability of major osteoporotic fracture: 10.0%. 10-year probability of hip fracture: 1.7%. us Lina Hawkins MD DEXA Final Resul t * (ABNORMAL) LIPID PANEL W REFLEX MEASURED LDL (07/01/2023 2:36 PM CDT) [facility] CHOLESTEROL,TOTAL 165 100 - 199 mg/dL 07/01/2023 9:54 PM CDT [facility] Comment: Cholesterol, Total Reference Ranges Desirable <200 mg/dL Borderline 200-239 mg/dL High >=240 mg/dL TRIGLYCERIDES 154(H) <150 mg/dL 07/01/2023 9:54 PM CDT [facility] HDL CHOLESTEROL 73 >40 mg/dL 9:54 PM CDT [facility] NON-HDL CHOLESTEROL 92 <145 mg/dl 07/01/2023 9:54 PM CDT [facility] CHOL/HDL RATIO 2.26 <4.50 07/01/2023 9:54 PM CDT [facility] LDL CHOLESTEROL 61 <=130 mg/dL 07/01/2023 9:54 PM CDT [facility] VLDL CHOLESTEROL 31(H) <=30 mg/dL 07/01/2023 9:54 PM CDT [facility] PROVIDER ORDERED STATUS RANDOM 07/01/2023 9:54 PM CDT [facility] Blood BLOOD SPECIMEN / Unknown Butterfly / Unknown 07/01/2023 2:36 PM CDT 07/01/2023 2:37 PM CDT us Lina Hawkins MD CHEMISTRY Final Resul t [facility] [address] [place] [address], [place] * COLONOSCOPY SCREENING (08/05/2018 9:50 AM CDT) us Safia SANDHU GI PROCEDURE ORD Final Res ult * ANTI HCV (07/15/2013 3:55 PM CDT) HEPATITIS C ANTIBODY Non-Reacti ve Non-Reacti ve 07/16/2013 5:01 PM CDT [facility] Blood specimen (specimen) BLOOD SPECIMEN / Unknown Venipuncture / Unknown 07/15/2013 3:55 PM CDT 07/15/2013 3:55 PM CDT Narrative [facility] - 07/16/2013 5:01 PM CDT Antibodies to HCV not detected; does not exclude the possibility of exposure to HCV. us Ros Richards DIRECTOR OF SPORTS PERFORMANCE SEND OUTS F inal Result [facility] [address] [place] [address], [place] from Last 3 Months or Most Recently Relevant to Health Maintenance Insurance MEDICARE PROVIDER BASED MR BC [place] BLUE MR PB ONLY MEDICARE PART A HB ONLY BLUE [place]OSS [place] BLUE HB ONLY MEDICARE PART B HB ONLY Advance Directives * Full Code (Latest Code Status on File) Date Activated Date Inactivated Comments 03/28/2022 3:49 PM 03/31/2022 4:38 PM Question Answer Comments Code Status Discussion: Reviewed Preferences * Full Code Date Activated Date Inactivated Comments 03/27/2022 2:57 PM 03/28/2022 3:49 PM Question Answer Comments Code Status Discussion: Unable to Assess Preferences, Provider to review later * Full Code Date Activated Date Inactivated Comments 09/03/2017 10:06 AM 09/03/2017 4:41 PM * Full Code Date Activated Date Inactivated Comments 05/12/2017 2:01 PM 05/15/2017 1:55 PM * Full Code Date Activated Date Inactivated Comments 05/12/2017 9:18 AM 05/12/2017 2:01 PM Care Teams Therapist Physical Relationship Specialty Start Date End Date Lina Hawkins MD [address] [place] [address] PCP - General Family Practice 12/24/23 Lane Cid PsyD, LP [address] [place] [address] Psychology 01/08/16 Naomi Bergman MD [address] [place] [address] Psychiatry 01/08/16
--- OUTSIDE RECORDS SUMMARY | 2024-05-27 12:36 | XMS_ITS | Clinical Summary ---
Author Organization [facility] Address [address] [place] [address] Care Team Providers Care Supplies Packer Name Role Phone Unavailable Primary Care Provider Unavailabl e Source Comments Patient records contain information from all sites at [facility]. For routine questions regarding patient records, call [phone] during business hours, M-F 8:00 AM - 5:00 PM Central Time. Record requests for emergency care only can be directed to [phone] at any time.[facility] Allergies Active Allergy Reactions Criticality Noted Date Comments Codeine Other (see comments) High 07/30/2006 Iodinated Contrast Media Hives (Reselect Reaction) Medium 05/12/2017 Morphine Anaphylaxis,Anxiety High 08/10/2002 Propoxyphene-Acetamin ophen Nausea Only Medium 07/30/2006 Topiramate GI intolerance Medium 07/30/2006 Tramadol Tinnitus 09/03/2017 crickets chirping in ears - attributes to tramadol Medications * This document contains information received from the source organization and may not represent a complete record from that organization. levothyroxine (SYNTHROID, LEVOTHROID) 125 mcg tablet Take 1 tablet by mouth daily. 9 Active gabapentin (NEURONTIN) 100 mg capsule Take 1 capsule by mouth at bedtime. 6 Active LORazepam (ATIVAN) 0.5 mg tablet Take 0.5 mg by mouth as needed. 6 Active buPROPion XL (WELLBUTRIN XL) 300 mg 24 hr tablet Take 300 mg by mouth. 0 Active omeprazole (PriLOSEC) [address] capsule Take 20 mg by mouth at bedtime. 0 Active aspirin 325 mg tablet Take 325 mg by mouth every 6 (six) hours as needed for pain. Active alendronate-choleca lciferol (FOSAMAX PLUS D) 70 mg- 2,800 unit per tablet Take 1 tablet by mouth once a week. Take with 8oz of water, on an empty stomach. Remain upright for 30min. Active diphenhydrAMINE-jack taminophen (TYLENOL PM) 25-500 mg per tablet Take by mouth at bedtime as needed for sleep. x2 or advil PM x2 every night Active ondansetron ODT (ZOFRAN-ODT) 4 mg disintegrating tablet Take 4 mg by mouth every 6 (six) hours as needed. 1 Active minoxidiL (LONITEN) 2.5 mg tabletIndications:A lopecia Areata Take 1 tablet (2.5 mg total) by mouth daily. 90 tablet 3 4 Active Active Problems Problem Noted Date Diagnosed Date Bipolar Disorder 10/17/2015 Encounters Date Type Department Care Team Description 04/13/2024 4:40 PM [facility] Office Visit Department of Dermatology in [address] [address] Shannon Huston M.D. Alopecia Areata (Primary Dx); Melanoma Personal History; Sun Damaged Skin; Nevi Multiple; Keratosis Seborrheic; Keratosis Actinic Discharge Disposition: Home or Self Care from Last 3 Months Immunizations Immunization Administration Dates Next Due HZV (ZOSTAVAX) 12/04/2010 Influenza TIV (IM) 11/08/2018, 8,12/02/2016,2011,12/04/2010,12/03/2009,01/24/2004 Influenza high dose QV(65 ye ars or older) (PF) 12/02/2019 Influenza, Seasonal, Injectable 12/18/2011,01/23 PCV13 01/08/2016 PPSV23 01/21/2018,12/04/2010 RZV (SHINGRIX) 03/15/2019,12/14/2018,11/08/2018 Td, (Adult) Unspecified 06/24/1995 Tdap 07/07/2018,08/07/2006 influenza trivalent high dos e (HD)(PF) 12/18/2015,01/08/2015 influenza trivalent vaccine (6 months and older)(PF) 01/10/2013,12/04/2010,12/03/2009 influenza vaccine quad (FLUZONE/FLUARIX) (6 months and older)(PF) 12/08/2013 Family History Medical History Relation Name Comments Anxiety disorder Father bj Dementia Father bj Depression Father bj Diabetes Father bj Hypertension Father bj Stroke Father bj Transient ischemic attack Father bj Diabetes Sister kiya Relation Name Status Comments Father bj Sister kiya Social History Tobacco Use Types Packs/Day Years Used Date Smoking Tobacco: Former Cigarettes 0 04/23/1968 - 1976 Smokeless Tobacco: Never Alcohol Use Standard Drinks/Week Comments Never 0 (1 standard drink = 0.6 oz pur e alcohol) [facility] I-lightingities Answer Date Recorded In the past 12 months has e [place], gas, oil, or water [employer] threatened to shut off services in your [...] 02/29/2020 How often do you attend chur ch or worship services? More than 4 times per year 02/29/2020 Do you belong to any clubs o r organizations such as rastafari groups, unions, fraternal or athletic groups, or [...] Answer Date Recorded PHQ-2 Score 2 02/29/2020 [facility] - Occupational Stress [...] money to buy more. Never true 04/12/19 25 Within the past 12 months, t he [...] your living situation today? I have a [facility] place to live 04/12/2024 Education Answer Date Recorded What is the highest level of school you have completed or the highest degree you have received? 12th grade 02/29/2020 Comments Unknown Sex and Gender Information Value Date Recorded Sex Assigned at Female 07/18/2021 9:38 PM CDT Legal Sex Female 6:04 AM [facility] Gender Identity Female 03/30/2020 10:36 PM [facility] Sexual Orientation Not on file Last Filed Vital Signs Vital Sign Reading Time Taken Comments Blood Pressure 127/63 04/16/2020 2:14 PM [facility] Pulse 78 04/16/2020 2:14 PM [facility] Temperature 36.7 C (98.1 F) 04/16/2020 2:14 PM [facility] Respiratory Rate - - Oxygen Saturation 97% 04/16/2020 2:14 PM [facility] Inhaled Oxygen Concentration - - Weight 89.5 kg (197 lb 5 oz) 04/16/2020 2:14 PM [facility] Height 162.3 cm (5' 3.9) 04/16/2020 2:14 PM [facility] Body Mass Index 33.98 04/16/2020 2:14 PM [facility]OOK Plan of Treatment Health Maintenance Due Date Last Done Comments CT Colonography 1950 Cologuard 1950 FIT 1950 Hepatitis C Screening 1950 COVID-19 Vaccine ( season) 2023 07/01/2023, 04/03/2022, 08/08/2021, Additional history exists Influenza Vaccine (#1) 2023 , 01/26/2022, 12/14/2020, Additional history exists Depression Screening (Annual PHQ-2) 03/16/2024 Fall Risk Screen (Annual) 03/16/2024 RSV vaccine - (32-36 weeks) or 60+ years (1 - 1-dose 75+ series) 2024 Thyroid Stimulating Hormone (TSH) test for thyroid function 06/30/2024 07/01/2023, 05/14/2023, 09/18/2022, Additional history exists Mammogram 09/27/2024 09/28/2023, 09/13, 09/09/2022, Additional history exists Fasting Glucose for Diabetes Screening 06/30/2026 07/01/2023, 03/29/2022, 02/27/2022, Additional history exists DTaP,Tdap,and Td Vaccines (3 - Td or Tdap) 07/07/2028 07/07/2018, 08/07/2006, 06/24/1995 Colonoscopy 08/05/2028 08/05/2018, 03/2012 (Performed elsewhere) Colorectal Cancer Screening 08/05/2028 Pneumococcal vaccine (50+ years) Completed 01/21/2018, 01/08/2016, 12/04/2010 Zoster Vaccines Completed 03/15/2019, 03/2018, 11/08/2018, Additional history exists Bone Density Scan (Osteoporosis Screen) Discontinued 09/28/2023 IPV Vaccines Aged Out No longer eligi ble based on patient's age to complete this topic Medical Devices Implanted Type Area Wholesale Manager Device Identifier Shelf Expiration Date Model / Serial / Lot Knee Implant Knee Implant Right: Knee Procedures Procedure Name Priority Date/Time Associated Diagnosis Comments GLUCOSE, FASTING, S/P Routine 03/30/2020 9:43 AM [facility]AL [facility]OOK Complaint Memory THYROID FUNCTION CASCADE, S Routine 03/30/2020 9:43 AM [facility]CTION[facility]OOK Complaint Memory from Last 3 Months or Most Recently Relevant to Health Maintenance Results * (ABNORMAL) Thyroid Function Crisp (03/30/2020 9:43 AM [facility]OOK) TSH, Sensitive 28.7(H) 0.3 - 4.2 mIU/L 03/30/2020 10:57 AM [facility] DTL Blood (Blood, Venous) 03/30/2020 9:43 AM [facility]OOK 03/30/2020 10:07 AM [facility]OOK us Elizabeth Simms M.D. LAB BLOOD ADD-ON Final Re sult [place] [address] [place], [place] [address] [[email or web address] DTL [facility] [address] [place] [address] * Glucose, Fasting (03/30/2020 9:43 AM [facility]) Glucose, P 96 70 - 100 mg/dL 03/30/2020 10:48 AM [facility]OOK DTL Last Intake 14 hr 03/30/2020 10:08 AM [facility]AL [facility]OOK DTL Blood (Blood, Venous) 03/30/2020 9:43 AM [facility]CTIONAL COOK 03/30/2020 10:08 AM [facility]OOK Elizabeth Simms M.D. LAB BLOOD NON ADD-ON Chinyere l Result [facility] [address] [place] [address], [facility] [address] [place] [address] from Last 3 Months or Most Recently Relevant to Health Maintenance Insurance MEDICARE [facility]
--- NOTE | 2024-05-27 13:50 | ED_ITS ---
HPI - General Adult General Chief complaint: Neuro Symptoms/Altered Deficit Stated complaint: Loss balance, losing ability to walk Time Seen by Provider: 05/27/24 12:35 History of Present Illness HPI narrative: This 74-year-old female comes in with her significant other because of increased weakness over the past couple days. She also reports some shuffling type gait. She does have a history of tardive dyskinesia but symptoms have not been real prominent however her psychiatrist started her on trazodone and amantadine recently. She wonders if these medicines are contributing to her current symptoms. She does not report any fevers or symptoms of infection. She does take other medicines to treat her mood. Related Data Home Medications ?Medication ?Instructions ?Recorded ?Confirmed divalproex 250 mg tablet,extended 250 mg PO DAILY 06/25/22 06/23/23 release 24 hr divalproex 500 mg tablet,extended 500 mg PO QPM 06/25/22 06/23/23 release 24 hr gabapentin 300 mg capsule mg PO 06/25/22 06/23/23 minoxidil 2.5 mg tablet 2.5 mg PO DAILY 06/25/22 06/23/23 amantadine HCl 100 mg tablet 200 mg PO BID 05/22/23 06/23/23 atorvastatin 10 mg tablet 10 mg PO DAILY 05/22/23 06/23/23 levothyroxine 137 mcg tablet 137 mcg PO DAILY 05/22/23 06/23/23 quetiapine 100 mg tablet mg PO 05/22/23 05/22/23 valbenazine 80 mg capsule 80 mg PO DAILY 06/23/23 06/23/23 (Ingrezza) Allergies Allergy/AdvReac Type Severity Reaction Status Date / Time morphine Allergy Anaphylaxis Verified 05/27/24 13:08 Review of Systems Status of ROS: Reports: 10 or more systems reviewed and unremarkable except as noted in History and below Narrative: Constitutional: No fevers, no weight gain or loss. Eyes: No discharge. No vision changes. HENT: No congestion, no sore throat, no ear pain. Cardiovascular: No chest pain, no palpitations. Respiratory: No shortness of breath, no wheezes, no cough. Gastrointestinal: No abdominal pain, no vomiting, no diarrhea. Genitourinary: No dysuria, no hematuria. Musculoskeletal: Normal range of motion. Skin: No rashes, no pruritis. Neurological: No dizziness, sensory change, speech change. She reports generalized weakness. She also indicates and intention tremor. Endo/Heme/Allergies: No bruising or bleeding. No polydipsia. Pysch: no suicidality, no anxiety, no insomnia. All other systems reviewed and are negative. [facility] Medical History Melanoma (~2019) ?C43.9 - Malignant melanoma of skin, unspecified (ICD-10) Left lateral epicondylitis ?M77.12 - Lateral epicondylitis, left elbow (ICD-10) Tinnitus ?H93.19 - Tinnitus, unspecified ear (ICD-10) Non-cardiac chest pain ?R07.89 - Other chest pain (ICD-10) Gastroenteritis ?K52.9 - Noninfective gastroenteritis and colitis, unspecified (ICD-10) Dyskinesia of esophagus ?K22.4 - Dyskinesia of esophagus (ICD-10) Diarrhea ?R19.7 - Diarrhea, unspecified (ICD-10) Concussion ?S06.0XAA - Concussion with loss of consciousness status unknown, initial encounter (ICD-10) Chest pain ?R07.9 - Chest pain, unspecified (ICD-10) Acute bronchospasm ?J98.01 - Acute bronchospasm (ICD-10) Bipolar disorder ?F31.9 - Bipolar disorder, unspecified (ICD-10) GERD (gastroesophageal reflux disease) ?K21.9 - Gastro-esophageal reflux disease without esophagitis (ICD-10) Hypothyroid ?E03.9 - Hypothyroidism, unspecified (ICD-10) Surgical History Hx of LASIK ?Z98.890 - Other specified postprocedural states (ICD-10) H/O: hysterectomy ?Z90.710 - Acquired absence of both cervix and uterus (ICD-10) History of cholecystectomy ?Z90.49 - Acquired absence of other specified parts of digestive tract (ICD- 10) Family History Sister Breast cancer Diabetes Uterine cancer Mother Colon cancer Stroke Liver disease Father Stroke Social History Smoking Status: Never smoker Do you use any of these nicotine containing products: None Non-prescribed substance use: denies use service: No Exam Narrative: Exam Narrative: Constitutional: Well-developed, well-nourished, no acute distress. HEENT: Normocephalic, atraumatic. Neck: Normal range of motion. Nontender. Supple. Heart: Regular. No murmurs. Normal rate. Intact distal pulses. Lungs: Clear to auscultation. No chest discomfort. No wheezes, rhonchi, or rales. Abdomen: Normal bowel sounds. Nontender. No rebound tenderness. Genitalia: Deferred. Back: No midline tenderness. Normal range of motion. Extremities: Normal range of motion. No injury. Skin: Intact. No rash. Warm. No erythema or pallor. Neurologic: No altered sensation. No weakness. Alert and oriented. Her right hand does display an intention tremor. Psychiatric: No suicidality. No anxiety or depression. No insomnia. Nursing notes and vitals signs are reviewed. Const: Vital Signs, click to edit/add: Vital Signs - 24 hr 05/27/24 13:08 Temperature 97.8 F Pulse Rate [Pulse Oximeter] 63 Respiratory Rate 14 Blood Pressure [Ri t Upper Arm] 126/62 Pulse Oximetry 90 Oxygen Delivery Me thod Room Air Course Vital Signs Vital signs: Initial Vital Signs Temperature 97.8 F 05/27/24 13:08 Temperature Source Temporal Artery Scan 05/27/24 13:08 Pulse Rate 63 05/27/24 13:08 Pulse Rhythm Regular 05/27/24 13:08 Respiratory Rate 14 05/27/24 13:08 Blood Pressure 126/62 05/27/24 13:08 Blood Pressure Mean 83 05/27/24 13:08 Blood Pressure Position Semi-Fowlers 05/27/24 13:08 Pulse Oximetry 90 05/27/24 13:08 Oxygen Delivery Method Room Air 05/27/24 13:08 Vital Signs Temperature 97.8 F 05/27/24 13:08 Pulse Rate 63 05/27/24 13:08 Respiratory Rate 14 05/27/24 13:08 Blood Pressure 126/62 05/27/24 13:08 Pulse Oximetry 90 05/27/24 13:08 Oxygen Delivery Method Room Air 05/27/24 13:08 Temperature 97.8 F 05/27/24 13:08 Pulse Rate 63 05/27/24 13:08 Respiratory Rate 14 05/27/24 13:08 Blood Pressure 126/62 05/27/24 13:08 Pulse Oximetry 90 05/27/24 13:08 Oxygen Delivery Method Room Air 05/27/24 13:08 Medical Decision Making MDM Narrative Medical decision making narrative: This patient comes in reporting some generalized weakness in also indicates a tremor involving her right hand. She did start trazodone and amantadine a few weeks ago because she was having some dyskinesias. She stated that those symptoms went away but now she is been feeling generalized weakness over the past couple days. I did check labs and these all returned with normal results. She is taking lithium an a lab value was sent out but no result is expected today. The patient is okay to return home. I advised her to follow-up with her primary physician or neurologist regarding these matters. The patient does have an appointment for this to occur. I did recommend that she discontinue these 2 new medicines and evaluate if they seem to be contributing to her current symptoms. Lab Data Labs: Lab Results 05/27/24 Range/Units 15:00 WBC 10.06 (4.50-11.00) K/uL RBC 4.59 (4.00-5.20) m/uL Hgb 14.6 (12.0-16.0) gm/dL Hct 44.4 (33.0-51.0) % MCV 97 (80-100) fL MCH 32 (26-34) pg MCHC 33 (32-36) gm/dL RDW Coeff of Vesta 11.5 (11.5-15.5) % Plt Count 284 (140-440) K/uL Neut % (Auto) 66.1 (42.0-72.0) % Lymph % (Auto) 25.4 (20-44) % Davie % (Auto) 6.3 (0.0-11.0) % Eos % (Auto) 1.5 (0.0-7.0) % Baso % (Auto) 0.0 (0.0-3.0) % Neut # (Auto) 6.65 (1.7-7.0) K/uL Lymph # (Auto) 2.56 (0.90-2.90) K/uL Davie # (Auto) 0.60 (0.00-0.90) K/UL Eos # (Auto) 0.15 (0.00-0.50) K/uL Baso # (Auto) 0.00 (0.00-0.30) K/uL Abs Immat Gran (auto) 0.07 (0.00-0.30) K/uL Imm/Tot Granulo (auto) 0.7 % Sodium 138 (135-149) mmol/L Potassium 4.1 (3.6-5.1) mmol/L Chloride 103 (96-114) mmol/L Carbon Dioxide 27 (20-32) mmol/L Anion Gap 8 (7-15) mEq/L BUN 11 (7-30) mg/dL Creatinine 0.9 (0.5-1.5) mg/dL Estimated Creat Clear 41.97 Estimated GFR 67 ml/min Glucose 84 (60-115) mg/dL Calcium 9.4 (8.4-10.6) mg/dL Discharge Plan Discharge Clinical Impression: Weakness Patient Disposition: Home, Self-Care Condition: Stable Additional Instructions: Consider holding amantadine and or trazodone to evaluate if these medicines are causing more adverse effects than benefit. Follow-up with primary physician or neurologist for ongoing management. Return if worsening. Prescriptions: No Action divalproex 250 mg tablet extended release 24 hr 250 mg PO DAILY divalproex 500 mg tablet extended release 24 hr 500 mg PO QPM minoxidil 2.5 mg tablet 2.5 mg PO DAILY gabapentin 300 mg capsule PO amantadine HCl 100 mg tablet 200 mg PO BID levothyroxine 137 mcg tablet 137 mcg PO DAILY atorvastatin 10 mg tablet 10 mg PO DAILY quetiapine 100 mg tablet PO Ingrezza 80 mg capsule 80 mg PO DAILY Follow Up/Referrals: Lina Hawkins MD [Primary Care Provider] - Stand Alone Forms: [employer] Info Instructions
--- OUTSIDE RECORDS SUMMARY | 2024-05-27 14:12 | XMS_ITS | Clinical Summary ---
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 Melanoma 03/28/2022 Migraine syndrome 03/20/2022 [...] Department Care Team Description 05/27/2024 Nurse Triage [facility] [address] [place] [address] Naomi Bergman MD Weak 05/24/2024 Refill [facility] [address] [place] [address] Naomi Bergman MD Refill Request (Bupropion) 05/23/2024 1:15 PM CDT Office Visit [address] [address] Naomi Bergman MD Medication Management (Things are okay//Due for: Discus Exam/ ) 05/23/2024 Travel 05/16/2024 1:05 PM WELL DRILL OPERATOR Office Visit [address] [address] Lina Hawkins MD Thyroid Problem (Feels Tired all day ) 05/16/2024 Travel 03/23/2024 Telephone [facility] [address] [place] [address] Naomi Bergman MD Medication Management 03/06/2024 Nurse Triage [facility] [address] [place] [address] Lina Hawkins MD Cough 03/03/[address] [address] Naomi Bergman MD Refill Request (Lorazepam) 02/27/[address] [address] Naomi Bergman MD Refill Request (Pacolet Carbonate) from Last 3 Months Immunizations Immunization Administration Dates Next Due AMB Influenza, IIV3 (Age >=3 years) Preserve Free (Flu Clinic Only) 01/10/2013 AMB Influenza, IIV4 PF (=>6 mos Flulaval,Fluzone Fluarix)(Flu Clinic Only) 12/08/2013 Amb Influenza, Inact (High-d ose) (Flu Clinic Only) 12/18/2015 COVID-19 VACCINE SPIKEVAX (M ODERNA 50MCG/0.5ML) 12YO+ PFS 07/01/2023 COVID-19 vaccine ([employer] NTech 30mcg/0.3mL) 12YO+ BIVALENT PF, MDV 04/03/2022 [...] AM CDT Legal Sex Female 5:24 AM WELL DRILL OPERATOR Gender Identity Female 06/08/2020 12:32 AM CDT [...] 37 C (98.6 F) 05/16/2024 1:02 PM WELL DRILL OPERATOR Respiratory Rate 16 01/23/2023 1:35 PM WELL DRILL OPERATOR Oxygen Saturation 96% 05/16/2024 1:0 2 PM WELL DRILL OPERATOR Inhaled Oxygen Concentration - - Weight 90.7 kg (200 lb) 05/23/2024 1:12 PM CDT [facility] [place] weight Height 162.6 cm (5' 4) 08/24/2023 3:39 PM CDT Body Mass Index 34.33 08/24/2023 3:39 PM CDT Plan of Treatment Upcoming Encounters Date Type Department Care Team (Late st Contact Info) Description 06/09/2024 2:00 PM CDT Office Visit [facility] [address] [place] [address] Bronson Fermin, WELL DRILL OPERATOR [address] [place] [address] 06/29/2024 11:45 AM CDT Office Visit [facility] [address] [place] [address] Naomi Bergman MD [address] [place] [address] Health Maintenance Due Date Last Done Comments COVID-19 vaccine series ( season) 2023 07/01/2023, 04/03/2022, 08/08/2021, Additional history exists Influenza Vaccine (#1) 2023 , 12/14/2018, 11/08/2018, Additional history exists RSV vaccine for adults or (1 - 1-dose 75+ series) 2024 Medicare Wellness for age 65+ 07/01/2024, 08/08/2021, 04/06/2020 (Completed outside of [facility]), Additional history exists BMI (ht and wt [...] Completed 09/28/2023, Medical Devices Implanted Type Area Cyber Reverse Engineer Device Identifier Shelf Expiration Date Model / Serial / Lot Patella Sz32 Christina Ii Rnd [facility] - [id number] Implanted:Qty: 1 on 05/12/2017 by Zach King MD at [facility] Total Joint Right: Knee [employer] 02/07/2027 [id number] / / [id number] Baseplate Tib Rt Sz4 Christina Ii Titnm Non Pors - [id number] Implanted:Qty: 1 on 05/12/2017 by Zach King MD at [facility] Total Joint Right: Knee [employer] 02/04/2027 [id number] / / [id number] Log [id number] - [id number] [id number] Lens Iol - 1 - Lens Iol 21.5 Tecnis Implanted:Qty: 1 on 12/24/2011 by Srikanth Zapata MD at [facility] Left: Eye [employer] 08/23/2016 [id number] / [id number] / 40 G Rally Hv Bone Cement Implanted:Qty: 2 on 05/12/2017 by Zach King MD at [facility] Right: Knee [employer] 02/12/2022 [id number] / / [id number] Fem Rt Sz5 Legion Cruc Ret Oxin - [id number] Implanted:Qty: 1 on 05/12/2017 by Zach King MD at [facility] Right: Knee [employer] 12/06/2026 [id number] / / [id number] Insert Knee Sz3-4 11mm Legioncruc Ret High Flex Xlpe - [id number] Implanted:Qty: 1 on 05/12/2017 by Zach King MD at [facility] Right: Knee [employer] 01/19/2027 [id number] / / [id number] Procedures Procedure Name Priority Date/Time Associated Diagnosis Comments URINALYSIS MACROSCOPIC - [facility] ONLY POC DIP ([facility]) Routine 05/16/2024 2:44 PM WELL DRILL OPERATOR Urinary frequency URINALYSIS MICROSCOPIC Routine 05/16/2024 2:41 PM WELL DRILL OPERATOR Urinary frequency URINE CULTURE Routine 05/16/2024 2:41 PM WELL DRILL OPERATOR Urinary frequency COMP METABOLIC PANEL Routine 05/16/2024 2:00 PM WELL DRILL OPERATOR Fatigue, unspecified type CBC WITH AUTO DIFFERENTIAL Routine 05/16/2024 2:00 PM WELL DRILL OPERATOR Fatigue, unspecified type TSH WITH REFLEX Routine 05/16/2024 2:00 PM WELL DRILL OPERATOR Fatigue, unspecified type XR DXA BONE DENSITY [...] POCT Urinalysis Dipstick Only (05/16/2024 2:44 PM WELL DRILL OPERATOR) PH 5.5 5.0 - 8.0 [facility] SPECIFIC GRAVITY > OR = 1.030 1.001 - 1.035 [facility] Comment: Specific [place] values resulted are outside the analytical measurement range of this device. Recommend repeat/additional testing as clinically indicated. GLUCOSE NEGATIVE NEGATIVE [facility] BILIRUBIN NEGATIVE NEGATIVE [facility] KETONES NEGATIVE NEGATIVE [facility] OCCULT BLOOD NEGATIVE NEGATIVE [facility] PROTEIN NEGATIVE NEGATIVE [facility] NITRITE NEGATIVE NEGATIVE [facility] LEUKOCYTE ESTERASE TRACE(A) NEGATIVE [facility] Urine URINE SPECIMEN / Unknown 05/16/2024 2:44 PM WELL DRILL OPERATOR 05/16/2024 2:44 PM WELL DRILL OPERATOR us Lina Hawkins MD URINE Final Resul t [facility] [address] [place] [address], [place] [phone] [facility] [address] [place] [address] * URINALYSIS MICROSCOPIC (05/16/2024 2:41 PM WELL DRILL OPERATOR) RBC 0-2 0-2, None Seen /HPF 05/16/2024 11:35 PM WELL DRILL OPERATOR [facility] WBC 3-5 0-2, 3-5, None Seen /HPF 05/16/2024 11:35 PM WELL DRILL OPERATOR [facility] BACTERIA Few None Seen, Rare, Few Bacteria/H PF 05/16/2024 11:35 PM WELL DRILL OPERATOR [facility] EPITHELIAL CELLS Few None Seen, Few Epi/HPF 05/16/2024 11:35 PM WELL DRILL OPERATOR [facility] Mucus Present 05/16/2024 11:35 PM WELL DRILL OPERATOR [facility] HYALINE CASTS 0-2 0-2, 3-5 /LPF 05/16/2024 11:35 PM WELL DRILL OPERATOR [facility] Urine URINE SPECIMEN / Unknown Non-Blood / Unknown 05/16/2024 2:41 PM WELL DRILL OPERATOR 05/16/2024 2:49 PM WELL DRILL OPERATOR us Lina Hawkins MD URINE Final Resul t Performing Organization Address City/[facility]/ZIP Co de Phone Number [facility] [address] [place] [address], [place] * URINE CULTURE (05/16/2024 2:41 PM WELL DRILL OPERATOR) CULTURE <10,000 CFU/mL multiple organisms 05/18/2024 10:24 AM WELL DRILL OPERATOR [facility] Urine URINE SPECIMEN / Unknown Non-Blood / Unknown 05/16/2024 2:41 PM WELL DRILL OPERATOR 05/16/2024 2:49 PM WELL DRILL OPERATOR us Lina Hawkins MD MICROBIOLOGY Final Resul t Performing Organization Address City/[facility]/ZIP Co de Phone Number [facility] [address] [place] [address], [place] * TSH WITH REFLEX (05/16/2024 2:00 PM WELL DRILL OPERATOR) Pathologist [facility] TSH W/REFLEX TO FT4 1.41 0.40 - 4.50 mIU/L [facility] Blood BLOOD SPECIMEN / Unknown 05/16/2024 2:00 PM WELL DRILL OPERATOR 05/16/2024 2:01 PM WELL DRILL OPERATOR Narrative [facility] - 05/17/2024 6:17 AM WELL DRILL OPERATOR FASTING:NO FASTING: NO us Lina Hawkins MD CHEMISTRY Final Resul t [facility] [address] [place] [address], [facility] [address] [place] [address] * (ABNORMAL) CBC AND DIFFERENTIAL (05/16/2024 2:00 PM WELL DRILL OPERATOR) Pathologist [facility] WHITE BLOOD CELL COUNT 11.4(H) 3.8 - [...] BLOOD SPECIMEN / Unknown 05/16/2024 2:00 PM WELL DRILL OPERATOR 05/16/2024 2:01 PM WELL DRILL OPERATOR Narrative [facility] - 05/17/2024 3:03 AM WELL DRILL OPERATOR FASTING:NO FASTING: NO us Lina Hawkins MD HEMATOLOGY Final Resul t [facility] [address] [place] [address], [facility] [address] * COMP METABOLIC PANEL (05/16/2024 2:00 PM WELL DRILL OPERATOR) [facility] GLUCOSE 93 65 - 139 mg/dL [facility] Comment: Non-fasting reference interval UREA [...] SODIUM 139 135 - 146 mmol/L [facility] POTASSIUM 4.4 3.5 - 5.3 [...] BLOOD SPECIMEN / Unknown 05/16/2024 2:00 PM WELL DRILL OPERATOR 05/16/2024 2:01 PM WELL DRILL OPERATOR Narrative [facility] - 05/17/2024 5:14 AM WELL DRILL OPERATOR FASTING:NO FASTING: NO us Lina Hawkins MD CHEMISTRY Final Resul t [facility] [address] [place] [address], [facility] [address] [place] [address] * (ABNORMAL) XR DXA BONE DENSITY 2 SITES AXIAL [35434.1] (09/28/2023 1:13 PM CDT) Anatomical Region Laterality [...] recommended in 3-5 years. Aleena Bloom PA-C [facility] 09/29/2023 Narrative 09/29/2023 2:10 PM CDT For Patients: Results are automatically released to your [facility] ([employer]) account once available, in compliance with federal regulations. This means that you may see your results before your provider has had a chance to review them. Please allow 2-3 business days for your provider to comment on the results. XR DXA Bone Mineral Density (BMD) EXAM LOCATION: [address] [address] PATIENT NAME: Felisa Lombardo DATE OF : [...] two scanners are made by the same substation design draftsperson. PROCEDURE: Dual-energy x-ray absorptiometry performed with routine [...] REFLEX MEASURED LDL (07/01/2023 2:36 PM CDT) [facility] CHOLESTEROL,TOTAL 165 100 - 199 mg/dL 07/01/2023 9:54 PM CDT [facility] Comment: Cholesterol, Total Reference Ranges Desirable <200 mg/dL Borderline 200-239 mg/dL High >=240 mg/dL TRIGLYCERIDES 154(H) <150 mg/dL 07/01/2023 9:54 PM CDT [facility] HDL CHOLESTEROL 73 >40 mg/dL 9:54 PM CDT [facility] NON-HDL CHOLESTEROL 92 <145 mg/dl 07/01/2023 9:54 PM CDT [facility] CHOL/HDL RATIO 2.26 <4.50 07/01/2023 9:54 PM CDT [facility] LDL CHOLESTEROL 61 <=130 mg/dL 07/01/2023 9:54 PM CDT [facility] VLDL CHOLESTEROL 31(H) <=30 mg/dL 07/01/2023 9:54 PM CDT [facility] PROVIDER ORDERED STATUS RANDOM 07/01/2023 9:54 PM CDT [facility] Blood BLOOD SPECIMEN / Unknown Butterfly / Unknown 07/01/2023 2:36 PM CDT 07/01/2023 2:37 PM CDT us Lina Hawkins MD CHEMISTRY Final Resul t [facility] [address] [place] [address], [place] * COLONOSCOPY SCREENING (08/05/2018 9:50 AM CDT) us Safia SANDHU GI PROCEDURE ORD Final Res ult * ANTI HCV (07/15/2013 3:55 PM CDT) HEPATITIS C ANTIBODY Non-Reacti ve Non-Reacti ve 07/16/2013 5:01 PM CDT [facility] Blood specimen (specimen) BLOOD SPECIMEN / Unknown Venipuncture / Unknown 07/15/2013 3:55 PM CDT 07/15/2013 3:55 PM CDT Narrative [facility] - 07/16/2013 5:01 PM CDT Antibodies to HCV not detected; does not exclude the possibility of exposure to HCV. us Ros Richards SHREDDED FILLER MACHINE WRAPPER LAYER SEND OUTS F inal Result [facility] [address] [place] [address], [place] from Last 3 Months or Most Recently Relevant to Health Maintenance Insurance MEDICARE PROVIDER BASED MR BC [place] [employer] [place] BLUE MR PB ONLY MEDICARE PART A HB ONLY BLUE [place]OSS [place] BLUE HB ONLY MEDICARE PART B HB [...] 9:18 AM 05/12/2017 2:01 PM Care Teams Television Tube Inspector Relationship Specialty Start Date End Date Lina Hawkins MD [address] [place] [address] PCP - General Family Practice 12/24/23 Lane Cid PsyD, LP [address] [facility] [place] [place] [address] Psychology 01/08/16 Naomi Bergman MD [address] [facility] [place] [place] [address] Psychiatry 01/08/16
--- OUTSIDE RECORDS SUMMARY | 2024-05-27 14:12 | XMS_ITS | Clinical Summary ---
Author Organization [employer] Address [address] [place] [address] Care Team Providers Care Loom Stop Checker Name Role Phone Real Otto Primary Care Provider Unavailab le Source Comments You are receiving this document as you are listed as the primary care provider,follow-up provider, or the patient has been referred to you for consultation.This is in compliance with the Medicare and[facility] EHR Incentive Program,which states Providers who transition their patient to another setting of careor provider of care or refers their patient to another provider of care shouldprovide summary care record for each transition of care or referral. 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, left anterior neck, s/p excision [...] Sex Assigned at Female 02/01/2021 11:07 PM PHLEBOTOMIST Legal Sex Female 5:27 AM CDT Gender Identity Female 02/01/2021 11:07 PM PHLEBOTOMIST Sexual Orientation Straight 02/01/2021 11 :07 PM PHLEBOTOMIST Last Filed Vital Signs Vital Sign Reading Time Taken Comments Blood Pressure 133/52 01/18/2020 2:22 PM PHLEBOTOMIST Pulse 73 01/18/2020 2:22 PM PHLEBOTOMIST Temperature - - Respiratory Rate - - [...] patient's age to complete this topic Insurance [facility] BLUE MEDICARE MANAGED CARE [facility] Care Teams Loom Stop Checker Relationship Specialty Start Date End Date Real Otto PCP - General 06/14/10
--- OUTSIDE RECORDS SUMMARY | 2024-05-27 14:12 | XMS_ITS | Clinical Summary ---
Author Organization [facility] Address [address] [place] [address] Care Team Providers Care Rug Cutter Helper Name Role Phone Unavailable Primary Care Provider Unavailabl e Source Comments Patient records contain information from all sites at [facility]. For routine questions regarding patient records, call [phone] during business hours, M-F 8:00 AM - 5:00 PM Central Time. Record requests for emergency care only can be directed to [phone] at any time.[facility] Allergies Active Allergy Reactions Criticality Noted Date [...] Department Care Team Description 04/13/2024 4:40 PM MOISTURE TESTER Office Visit Department of Dermatology in [address] [address] Shannon Huston M.D. Alopecia Areata (Primary Dx); [...] drink = 0.6 oz pur e alcohol) [facility] [employer] Answer Date Recorded In the past 12 months has e Doculogy, gas, oil, or water Interface21 threatened to shut off services in your [...] often do you attend chur ch or moravian services? More than 4 times per year [...] Answer Date Recorded PHQ-2 Score 2 02/29/2020 [facility] of Occupat ional Health - Occupational Stress [...] your living situation today? I have a [facility] place to live 04/12/2024 Education Answer Date Recorded What is the highest level of school you have completed or the highest degree you have received? 12th grade 02/29/2020 Comments Unknown Sex and Gender Information Value Date Recorded Sex Assigned at Female 07/18/2021 9:38 PM CDT Legal Sex Female 6:04 AM MOISTURE TESTER Gender Identity Female 03/30/2020 10:36 PM MOISTURE TESTER Sexual Orientation Not on file Last Filed Vital Signs Vital Sign Reading Time Taken Comments Blood Pressure 127/63 04/16/2020 2:14 PM MOISTURE TESTER Pulse 78 04/16/2020 2:14 PM MOISTURE TESTER Temperature 36.7 C (98.1 F) 04/16/2020 2:14 PM MOISTURE TESTER Respiratory Rate - - Oxygen Saturation 97% 04/16/2020 2:14 PM MOISTURE TESTER Inhaled Oxygen Concentration - - Weight 89.5 kg (197 lb 5 oz) 04/16/2020 2:14 PM MOISTURE TESTER Height 162.3 cm (5' 3.9) 04/16/2020 2:14 PM MOISTURE TESTER Body Mass Index 33.98 04/16/2020 2:14 PM MOISTURE TESTER Plan of Treatment Health Maintenance Due Date [...] this topic Medical Devices Implanted Type Area Lead Recreation Assistant Device Identifier Shelf Expiration Date Model / Serial / Lot Knee Implant Knee Implant Right: Knee Procedures Procedure Name Priority Date/Time Associated Diagnosis Comments GLUCOSE, FASTING, S/P Routine 03/30/2020 9:43 AM MOISTURE TESTER Complaint Memory THYROID FUNCTION CASCADE, S Routine 03/30/2020 9:43 AM MOISTURE TESTER Complaint Memory from Last 3 Months or Most Recently Relevant to Health Maintenance Results * (ABNORMAL) Thyroid Function Delta (03/30/2020 9:43 AM MOISTURE TESTER) TSH, Sensitive 28.7(H) 0.3 - 4.2 mIU/L 03/30/2020 10:57 AM MOISTURE TESTER DTL Blood (Blood, Venous) 03/30/2020 9:43 AM MOISTURE TESTER 03/30/2020 10:07 AM MOISTURE TESTER us Elizabeth Simms M.D. LAB BLOOD ADD-ON Final Re sult [place] [address] [place], [place] [address] DTL [facility] [address] [place] [address] * Glucose, Fasting (03/30/2020 9:43 AM MOISTURE TESTER) Glucose, P 96 70 - 100 mg/dL 03/30/2020 10:48 AM MOISTURE TESTER DTL Last Intake 14 hr 03/30/2020 10:08 AM MOISTURE TESTER DTL Blood (Blood, Venous) 03/30/2020 9:43 AM MOISTURE TESTER 03/30/2020 10:08 AM MOISTURE TESTER Elizabeth Simms M.D. LAB BLOOD NON ADD-ON Chinyere l Result [facility] [address] [place] [address], [facility] [address] [place] [address] from Last 3 Months or Most Recently Relevant to Health Maintenance Insurance MEDICARE [facility]
--- OUTSIDE RECORDS SUMMARY | 2024-05-27 14:12 | XMS_ITS | Encounter Summary ---
Author Organization [facility] Address [address] [place] [address] Care Team Providers Care Powder Blender And Pourer Name Role Phone Unavailable Primary Care Provider Unavailabl e Reason for Visit * Appointment Request (Routine) - Closed Specialty Diagnoses / Procedures Referred By Contac t Referred To Contact Dermatology Diagnoses Alopecia Referral ID Status Reason Start Date Expiration Date Visits Re quested Visits Authorized [id number] Closed 01/18/2024 01/17/2025 1 1 Encounter Details Date Type Department Care Team (Late st Contact Info) Description 04/13/2024 4:40 PM VP MEDICAL Office Visit Department of Dermatology in [place], [place] [address] [place] [phone] Shannon Huston M.D. [address] [place] [phone] Alopecia Areata (Primary Dx); Melanoma Personal History; Sun Damaged Skin; Nevi Multiple; Keratosis Seborrheic; Keratosis Actinic Discharge Disposition: Home or Self Care Social History Tobacco Use Types Packs/Day Years Used Date Smoking Tobacco: Former Cigarettes 0 04/23/1968 - 1976 Smokeless Tobacco: Never Alcohol Use Standard Drinks/Week Comments Never 0 (1 standard drink = 0.6 oz pur e alcohol) [facility] Utilities Answer Date Recorded In the past [...] How often do you attend chur or hoahaoism services? More than 4 times per year 02/29/2020 Do you belong to any clubs o r organizations such as zoroastrian groups, unions, fraternal or athletic groups, or [...] Answer Date Recorded PHQ-2 Score 2 02/29/2020 [facility] [place] of Occupat ional Health - Occupational Stress [...] your living situation today? I have a [facility] place to live 04/12/2024 Education Answer Date Recorded What is the highest level of school you have completed or the highest degree you have received? 12th grade 02/29/2020 Comments Unknown Sex and Gender Information Value Date Recorded Sex Assigned at Female 07/18/2021 9:38 PM CDT Legal Sex Female 6:04 AM VP MEDICAL Gender Identity Female 03/30/2020 10:36 PM VP MEDICAL Sexual Orientation Not on file documented as of this encounter Progress Notes * Shannon Huston M.D. - 04/13/2024 4:40 PM CST SUBJECTIVE CHIEF COMPLAINT Personal history of melanoma in situ, follow-up Alopecia areata HISTORY OF THE PRESENT ILLNESS Felisa Lomabrdo is a pleasant 73 y.o. female who [...] should return for biopsy or further evaluation. MEDICAL documented in this encounter Plan of Treatment [...]
[2024-05-27 15:10] LABS: Eosinophils Absolute Auto 0.15 K/uL (0.00-0.50); Eosinophils Percent Auto 1.5 % (0.0-7.0); Hematocrit 44.4 % (33.0-51.0); Hemoglobin* 14.6 gm/dL (12.0-16.0); Immature Granulocytes Abs Auto 0.07 K/uL (0.00-0.30); Immature Granulocytes Pct Auto 0.7 %; Lymphocytes Absolute Auto 2.56 K/uL (0.90-2.90); Lymphocytes Percent Auto 25.4 % (20-44); Mean Corpuscular HGB Conc 33 gm/dL (32-36); Mean Corpuscular Hemoglobin 32 pg (26-34); Mean Corpuscular Volume 97 fL (80-100); Monocytes Percent Auto 6.3 % (0.0-11.0); Neutrophils Absolute Auto 6.65 K/uL (1.7-7.0); Neutrophils Percent Auto 66.1 % (42.0-72.0); Platelet Count* 284 K/uL (140-440); RDW Coefficient of Variation % 11.5 % (11.5-15.5); Red Blood Count 4.59 m/uL (4.00-5.20); White Blood Count* 10.06 K/uL (4.50-11.00)
[2024-05-27 15:18] LABS: Slide Review Reflex No
[2024-05-27 15:26] LABS: Chloride* 103 mmol/L (96-114); Sodium* 138 mmol/L (135-149)
[2024-05-27 15:27] LABS: Potassium* 4.1 mmol/L (3.6-5.1)
[2024-05-27 15:29] LABS: Anion Gap 8 mEq/L (7-15); Blood Urea Nitrogen* 11 mg/dL (7-30); Carbon Dioxide* 27 mmol/L (20-32); Creatinine* 0.9 mg/dL (0.5-1.5); Est. Creatinine Clearance* 41.97; Estimated Glomerular Filt Rate 67 ml/min
[2024-05-27 15:30] LABS: Calcium* 9.4 mg/dL (8.4-10.6); Glucose* 84 mg/dL (60-115)
== END 2024-05-27 16:12 | disposition home or self-care (01) ==
PROVIDERS: Emergency Provider Emergency Medicine Emergency Medical Services; PCP Family Medicine
DX: R53.1 Weakness (principal)
CPT/HCPCS: 36415; 80048; 80178; 85025; 99283; 99284

== ENCOUNTER 2024-07-29 12:49 | Outpatient (CLI) | payer MEDICARE, BC, SELFPAY ==
--- NOTE | 2024-07-29 13:00 | CRLHL7_ITS ---
For Patients: As a result of the Century Cures Act, medical imaging exams and procedure reports are released immediately into your electronic medical record. You may view this report before your referring provider. If you have questions, please contact your health care provider. Indication: Gait imbalance Technique: Multiplanar, multisequence MRI of the brain obtained without contrast. Comparison: CT head 02/12/2022, MRI brain report 07/08/2021 Findings: Subtle nodularity is noted along the lateral margin of the right lateral ventricle body, appearing to match reyes matter signal across all sequences. Ventricles and cortical sulci are mildly prominent, compatible with generalized cerebral volume loss. Prominent perivascular space is noted at the right anterior inferior basal ganglia. Small foci of T2 hyperintensity scattered throughout the cerebral white matter. Midline structures are unremarkable. Major expected intracranial arterial flow voids are visualized. No suspicious calvarial marrow lesion. Minor mucosal thickening throughout the ethmoid air cells with small mucous retention cysts at the left inferior maxillary sinus. Trace nonspecific fluid at the left mastoid tip. Left lens implant. Impression: 1. Subtle nodularity along the body of the right lateral ventricle, suspicious for heterotopic reyes matter. 2. Punctate T2 hyperintense foci throughout the cerebral white matter bilaterally, potentially sequela of chronic migraine headaches or minimal chronic microangiopathy. 3. Mild generalized cerebral volume loss. Dictated by Jia Temple MD @ 07/29/2024 3:09:02 PM (Electronically Signed)
== END 2024-07-29 12:50 | disposition home or self-care (01) ==
LOC: MRI 12:50
PROVIDERS: PCP Family Medicine; Visit Provider Psychiatry & Neurology Neurology
DX: R26.89 Other abnormalities of gait and mobility (principal); G93.9 Disorder of brain, unspecified; G20.C Parkinsonism, unspecified; G24.01 Drug induced subacute dyskinesia
CPT/HCPCS: 70551

== ENCOUNTER 2024-08-22 10:18 | Outpatient (CLI) | payer MEDICARE, BC, SELFPAY ==
--- NOTE | 2024-08-22 10:45 | CRLHL7_ITS ---
For Patients: As a result of the Century Cures Act, medical imaging exams and procedure reports are released immediately into your electronic medical record. You may view this report before your referring provider. If you have questions, please contact your health care provider. Indication: Gait imbalance. Technique: MRI of the cervical spine was performed without the use of intravenous contrast. Comparison: None relevant available. Findings: Mild chronic superior endplate compression deformities of C7 and T1. No discrete T1 hypointense marrow infiltrating process. Mild disc height loss and degeneration. No abnormal cord signal. C2-3: No spinal canal or neural foraminal narrowing. C3-4: No spinal canal or neural foraminal narrowing. Mild left facet arthropathy. C4-5: Trace anterolisthesis. No spinal canal or neural foraminal narrowing. Mild facet arthropathy. C5-6: Shallow disc bulge results in minimal spinal canal narrowing. No neural foraminal narrowing. Mild facet arthropathy. C6-7: Disc degeneration with minimal disc bulge. No spinal canal or neural foraminal narrowing. C7-T1: No spinal canal or neural foraminal narrowing. Impression: 1. Mild multilevel cervical spondylosis. No high-grade spinal canal narrowing. 2. No abnormal cord signal. Dictated by Jose Mckenna MD @ 08/22/2024 4:08:04 PM (Electronically Signed)
== END 2024-08-22 10:19 | disposition home or self-care (01) ==
LOC: MRI 10:20
PROVIDERS: PCP Family Medicine; Visit Provider Psychiatry & Neurology Neurology
DX: R26.89 Other abnormalities of gait and mobility (principal); M47.892 Other spondylosis, cervical region; R53.1 Weakness; G20.C Parkinsonism, unspecified
CPT/HCPCS: 72141

== ENCOUNTER 2024-09-06 14:00 | Outpatient (RCR) | payer MEDICARE, BC, SELFPAY | END 2024-10-25 16:43 | disposition home or self-care (01) | PROVIDERS: PCP Family Medicine; Visit Provider Psychiatry & Neurology Neurology | DX: G24.01 Drug induced subacute dyskinesia (principal); G20.C Parkinsonism, unspecified; R26.89 Other abnormalities of gait and mobility; Z74.1 Need for assistance with personal care; R53.1 Weakness; Z51.89 Encounter for other specified aftercare | CPT/HCPCS: 97110; 97112; 97116; 97162; 97535; X5282 ==

== ENCOUNTER 2024-09-06 15:00 | Outpatient (RCR) | payer MEDICARE, BC, SELFPAY | END 2025-01-04 23:59 | disposition home or self-care (01) | PROVIDERS: PCP Family Medicine; Visit Provider Family Medicine | DX: G24.01 Drug induced subacute dyskinesia (principal); Z74.1 Need for assistance with personal care; Z51.89 Encounter for other specified aftercare | CPT/HCPCS: 97110; 97112; 97116; 97162; 97166; 97535; X5282 ==